=== PATIENT | female | born 1975 | race American Indian/Alaskan Native ===

== ENCOUNTER 2020-01-03 15:44 | Emergency (ER) | payer OTHER, SELFPAY ==
[2020-01-03 15:58] VITALS: BP 123/107; PULSE 111; RESP 20; TEMP 37.1; O2SAT 100
--- NOTE | 2020-01-03 16:00 | ED.URI ---
HPI - URI/Sore Throat General Chief Complaint: Upper Respiratory Infection Stated Complaint: Cough Time Seen by Provider: 01/03/20 16:15 Source: patient and RN notes reviewed Mode of arrival: ambulatory Limitations: no limitations History of Present Illness HPI Narrative: 44-year-old female presents with concern for cough, fever, shortness of breath with coughing, rhinorrhea, body aches. Reports her has similar symptoms. MD elicited complaint: cough Related Data Home Medications Medication Instructions Recorded Confirmed cyclobenzaprine 10 mg PO HS PRN 01/03/20 01/03/20 ibuprofen 800 mg PO TID PRN 01/03/20 01/03/20 Allergies Allergy/AdvReac Type Severity Reaction Status Date / Time Beer Allergy Unknown HIVES, Uncoded 06/17/19 10:29 SWELLING Review of Systems Review of Systems: Narrative: CONSTITUTIONAL: Reports malaise, chills, sweats, or fever. EYES: Denies visual changes, redness, or discharge. ENT: Reports rhinorrhea, congestion. Denies sinus pain, otalgia and sore throat. CARDIOVASCULAR: Denies chest pain, palpitations, or edema. RESPIRATORY: Reports cough, occasional dyspnea, wheezing GASTROINTESTINAL: Denies abdominal pain, nausea, vomiting, diarrhea SKIN: Denies rash or itching. MUSCULOSKELETAL: Reports myalgia. NEUROLOGIC: Denies headache. All systems reviewed & are unremarkable except as noted in HPI and below PMFSH Comments At time of signature, agree with nursing past medical, surgical, social and family history. There is no relevant family history pertinent to the presenting complaint Exam Narrative: Exam Narrative: GENERAL: Well-appearing, well-nourished, and in no acute distress. HEAD: Normocephalic EYES: PERRLA, conjunctivae clear ENT: Nares clear, turbinates edematous and erythematous, clear discharge. Mucous membranes moist. TM pearly zhou with dull light reflex bilaterally; no tragal tenderness. Oropharynx not erythematous without lesions. Tonsils not enlarged and without exudate, no drooling, no hoarseness, no trismus, uvula midline. NECK: Supple. No lymphadenopathy CHEST: Clear to auscultation, breath sounds equal. No rhonchi, rales, or stridor. No respiratory distress, speaks in full sentences. Rare scattered expiratory wheeze HEART: Regular rate and rhythm. No murmur heard. SKIN: Warm, dry, no rash. NEURO: Alert and oriented x3. PSYCH: Normal mood and affect Course Course Emergency Course: Patient is aware of diagnosis, understands and agrees to treatment plan. Anticipatory guidance given. Patient agrees to follow-up as directed and is aware of reasons to seek care at the emergency department. Portions of this record may have been created with voice recognition software Vital Signs Vital signs: Vital Signs Temperature 98.7 F 01/03/20 15:58 Pulse Rate 11 L 01/03/20 15:58 Respiratory Rate 20 01/03/20 15:58 Blood Pressure 123/107 H 01/03/20 15:58 Pulse Oximetry 100 01/03/20 15:58 Temperature 98.7 F 01/03/20 15:58 Pulse Rate 11 L 01/03/20 15:58 Respiratory Rate 20 01/03/20 15:58 Blood Pressure 123/107 H 01/03/20 15:58 Pulse Oximetry 100 01/03/20 15:58 Reviewed. MDM - URI/Sore Throat MDM Narrative Medical decision making narrative: Differential diagnosis considered: Strep pharyngitis, allergic rhinitis, upper respiratory tract infection, sinusitis, rhinosinusitis, nasopharyngitis. viral pharyngitis, otitis media, otitis externa, pneumonia, bronchitis, viral cough syndrome, viral syndrome, and influenza. Exam findings show no acute concerns or changes; patient is non-toxic appearing and is in no distress. Patient is appropriate for outpatient treatment and follow-up. Critical Care Time Critical Care Time Critical Care Time: No Discharge Plan Discharge Clinical Impression: Influenza-like illness Patient Disposition: Home, Self-Care Condition: Stable Instructions: Influenza (ED) Additional Instructions: -Your symptoms are cau
[2020-01-03 16:28] VITALS: BP 104/65; PULSE 84; RESP 16; TEMP 36.3; O2SAT 100
[2020-01-03 16:31] VITALS: BP 132/80; PULSE 100; RESP 18
== END 2020-01-03 16:40 | disposition home or self-care (01) ==
PROVIDERS: Emergency Provider Nurse Practitioner
DX: R05 Cough (principal); R50.9 Fever, unspecified; R06.02 Shortness of breath; J34.89 Other specified disorders of nose and nasal sinuses; E78.00 Pure hypercholesterolemia, unspecified; I10 Essential (primary) hypertension
CPT/HCPCS: 99213; G0463

== ENCOUNTER 2020-08-11 13:38 | Emergency (ER) | payer OTHER, SELFPAY ==
[2020-08-11 13:42] VITALS: BP 141/93; PULSE 83; RESP 16; TEMP 36.1; O2SAT 100
--- NOTE | 2020-08-11 13:45 | ED.DENTAL ---
HPI - Dental/Oral General Chief complaint: Dental/Oral Stated complaint: DENTAL ABSCESS Time Seen by Provider: 08/11/20 13:40 Source: patient Mode of arrival: ambulatory Limitations: no limitations History of Present Illness HPI Narrative: This is a 44-year-old female that presents the emergency department for toothache x3 days. Reports a tooth that is cracked and has become painful. She has not seen a dentist, and she is unsure if she has dental insurance. Denies fever. MD Complaint: tooth pain Location: Tooth # (14) Related Data Home Medications Medication Instructions Recorded Confirmed cyclobenzaprine 10 mg PO HS PRN 01/03/20 01/03/20 ibuprofen 800 mg PO TID PRN 01/03/20 01/03/20 Allergies Allergy/AdvReac Type Severity Reaction Status Date / Time Beer Allergy Unknown HIVES, Uncoded 06/17/19 10:29 SWELLING Review of Systems Review of Systems: Narrative: CONSTITUTIONAL: Denies fever ENT: Reports dentalgia All systems reviewed & are unremarkable except as noted in HPI and below PMFSH Past Medical History Medical History (Updated 08/11/20 @ 13:55 by Sophie Charles PA-C) History of depression History of hypertension Surgical History Surgical History (Updated 08/11/20 @ 13:45 by Sophie Charles PA-C) History of section Exam Narrative: Exam Narrative: GENERAL: Well-appearing, well-nourished, and in no acute distress. HEAD: Normocephalic, atraumatic. EYES: EOMI. ENT: Mucous membranes moist. Oropharynx without tonsillar hypertrophy exudate or other lesions. Poor dentition. Tooth number 14 tender to palpation and broken, no surrounding erythema or fluctuance to suggest abscess NECK: Supple. No adenopathy or masses. CHEST: Clear to auscultation. No respiratory distress. No wheezes rales or rhonchi HEART: Regular rate and rhythm. No murmur heard. Normal peripheral pulses. EXTREMITIES: Normal range of motion. No edema. SKIN: Warm, dry, no rash. NEURO: No focal deficits. Alert and oriented x3. PSYCH: Normal mood and affect Course Vital Signs Vital signs: Vital Signs Temperature 97 F L 08/11/20 13:42 Pulse Rate 83 08/11/20 13:42 Respiratory Rate 16 10/17/20 13:42 Blood Pressure 141/93 H 08/11/20 13:42 Pulse Oximetry 100 08/11/20 13:42 Temperature 97 F L 08/11/20 13:42 Pulse Rate 83 08/11/20 13:42 Respiratory Rate 16 08/11/20 13:42 Blood Pressure 141/93 H 08/11/20 13:42 Pulse Oximetry 100 08/11/20 13:42 MDM - Dental/Oral MDM Narrative Medical decision making narrative: Patient presents the emergency department for toothache x3 days. She is afebrile and nontoxic-appearing. Tooth is tender to palpation, no surrounding erythema or fluctuance to suggest abscess. Patient will be started on oral antibiotics. She is to follow-up with a dentist. She was given warnings to return to the ER Critical Care Time Critical Care Time Critical Care Time: No Discharge Plan Discharge Clinical Impression: Toothache Patient Disposition: Home, Self-Care Condition: Stable Instructions: Antibiotic Form, Toothache (ED) Additional Instructions: Return to the Emergency Department if you experience fever >101, increasing swelling and redness of your tooth, or any other symptoms that are concerning to you Take antibiotic as prescribed. Tylenol or Ibuprofen as needed for pain. You can apply a dab of clove oil to a Qtip and apply to the tooth to help numb the area Follow up with a dentist. Dr. Bryce Gillette at [facility] Prescriptions: New amoxicillin-pot clavulanate 875-125 mg tablet 1 tablet PO Q12H 7 Days Qty: 14 RF: 0 No Action cyclobenzaprine 10 mg Tablet 10 mg PO HS PRN (Reason: Back Pain) RF: 0 ibuprofen 800 mg Tablet 800 mg PO TID PRN (Reason: Back Pain) RF: 0 promethazine-DM 6.25-15 mg/5 mL syrup 5 ml PO Q4-6H PRN (Reason: cough) Qty: 120 RF: 0 methylprednisolone [Medrol (Toney)] 4 mg tablets,dose pack S
[2020-08-11] MEDS: KETOROLAC (*BKC) 60 MG/2 ML VIAL IM (13:59)
== END 2020-08-11 14:18 | disposition home or self-care (01) ==
PROVIDERS: Emergency Provider Emergency Medicine
DX: K08.89 Other specified disorders of teeth and supporting structures (principal); I10 Essential (primary) hypertension
CPT/HCPCS: 96372; 99283; J1885

== ENCOUNTER 2022-12-08 00:24 | Emergency (ER) | payer MEDICAID, SELFPAY ==
[2022-12-08] VITALS (15 sets, daily range): BP systolic 96–147; BP diastolic 50–93; PULSE 82–107; RESP 14–27; TEMP 38.1; O2SAT 95–100
--- NOTE | ~2022-12-08 | XR_ITS ---
Clinical Indication: Chest pain PA and lateral views of the chest: Comparison: None Findings: The lungs are clear, without evidence of focal consolidation or pleural effusion. Cardiome diastinal silhouette is within normal limits. Bones and soft tissues are unremarkable. Impression: Normal chest. Reviewed, dictated and finalized at location . 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
--- NOTE | 2022-12-08 00:28 | ECG_ITS ---
Measurements Intervals Stow Rate: 104 P: 47 NE: 160 QRS: 33 QRSD: 87 T: 38 QT: 319 QTc: 421 Interpretive Statements SINUS TACHYCARDIA NONSPECIFIC T-WAVE ABNORMALITY ABNORMAL RHYTHM ECG COMPARED TO ECG 06/09/2019 11:06:30 HEART RATE IS INCREASED NO OTHER SIGNIFICANT CHANGE Electronically Signed On 12-08-2022 12:07:01 [employer] by John Denton M.D.
--- NOTE | 2022-12-08 00:44 | ED.GENADULT ---
HPI - General Adult General Chief complaint: Chest Pain Stated complaint: chest pain, sob, and rash Time Seen by Provider: 12/08/22 00:34 History of Present Illness HPI narrative: Patient is a 47-year-old female who presents the emergency department with a chief complaint of generalized malaise. The patient reports that yesterday she started having a headache and that had a rash that appeared over her body the patient states that her daughter has been sick with gastrointestinal and upper respiratory symptoms the patient also reports has been coughing and reports that she has an uncomfortable feeling in her chest. The patient states that she has felt subjectively as though she has had a fever reports that she took ibuprofen a few hours ago. Related Data Home Medications Medication Instructions Recorded Confirmed cyclobenzaprine 10 mg tablet 10 mg PO HS PRN Back Pain 01/03/20 01/03/20 ibuprofen 800 mg tablet 800 mg PO TID PRN Back Pain 01/03/20 01/03/20 Allergies Allergy/AdvReac Type Severity Reaction Status Date / Time acetaminophen [From Vicodin] Allergy Nausea and Verified 12/08/22 00:25 Vomiting hydrocodone [From Vicodin] Allergy Nausea and Verified 12/08/22 00:25 Vomiting Beer Allergy Unknown HIVES, Uncoded 12/08/22 00:25 SWELLING Review of Systems Review of Systems: A 10 system review of systems was completed on the patient and is negative except for what is stated in the HPI. Nursing and ancillary documentation was reviewed. [facility] Past Medical History Medical History History of depression History of hypertension Surgical History Surgical History History of section Exam Narrative: GENERAL: Well-appearing, well-nourished, and in no acute distress. HEAD: Normocephalic, atraumatic. EYES: PERRLA and EOMI. ENT: Nares clear, no rhinorrhea or epistaxis. Mucous membranes moist. NECK: Supple. No nuchal rigidity CHEST: Clear to auscultation. No respiratory distress. HEART: Regular rate and rhythm. No murmur heard. Normal peripheral pulses. ABDOMEN: Soft, nontender, nondistended, normal active bowel sounds. EXTREMITIES: Normal range of motion. No edema. SKIN: Warm, dry, maculopapular rash over the body. NEURO: No focal deficits. Alert and oriented x3. PSYCH: Normal mood and affect. Course Course Emergency Course: EKG is sinus rhythm rate of [address] elevation or ST depression Patient was febrile when she first arrived and was responded with Tylenol. Laboratory studies showed a normal white blood cell count normal procalcitonin normal lactate. Patient's electrolytes showed minimal elevation in the liver transaminases but normal bilirubin patient had a negative troponin x2 and urinalysis showed evidence of 16-20 white blood cells in the urine 4+ bacteria. Chest x-ray was interpreted by me showed no evidence of focal infiltrate. Patient will be given a dose of Omnicef in the emergency department and discharged home on Omnicef. Vital Signs Vital signs: Vital Signs Pulse Rate 103 H 12/08/22 00:30 Temperature 38.1 C H 12/08/22 00:32 Pulse Rate 82 12/08/22 03:46 Respiratory Rate 22 H 12/08/22 03:46 Blood Pressure 113/70 12/08/22 03:46 Pulse Oximetry 96 12/08/22 03:46 Oxygen Delivery Room Air 12/08/22 00:31 Medical Decision Making Vital Signs Vital Signs: Vital Signs Pulse Rate 103 H 12/08/22 00:30 Temperature 38.1 C H 12/08/22 00:32 Pulse Rate 82 12/08/22 03:46 Respiratory Rate 22 H 12/08/22 03:46 Blood Pressure 113/70 12/08/22 03:46 Pulse Oximetry 96 12/08/22 03:46 Oxygen Delivery Room Air 12/08/22 00:31 Lab Data 12/08/22 00:46 12/08/22 00:46 Labs: Lab Results 12/08/22 12/08/22 12/08/22 Range/Units 00:46 00:46 00:46 WBC 4.8 (4.5-10.0) K/mm3 RBC
[2022-12-08 01:08] LABS: Basophils Percent Auto 0.6 % (0.2-1.2); Eosinophils Absolute Auto 0.2 K/mm3 (0-0.3); Eosinophils Percent Auto 4.4 % (0-4.4); Hematocrit 44.6 % (37.0-47.0); Hemoglobin 14.7 g/dL (12.0-15.0); Immature Granulocyte Absolute 0.04 K/mm3 (0.00-0.031); Immature Granulocyte Percent A 0.8 % (0-0.5); Lymphocytes Absolute Auto 0.67 K/mm3 (0.9-3.2); Lymphocytes Percent Auto 13.9 % (18.3-44.2); Mean Corpuscular Hemoglobin 29.7 pg (26-34); Mean Corpuscular Volume 90.1 fl (80-100); Mean Platelet Volume 11.2 fl (7.4-10.4); Monocytes Absolute Auto 0.3 K/mm3 (0.1-0.6); Monocytes Percent Auto 6.4 % (2.6-8.5); Neutrophils Absolute Auto 3.6 K/mm3 (1.3-6.7); Neutrophils Percent Auto 73.9 % (45.5-73.1); Platelet Count Result 158 k/mm3 (150-375); Red Blood Count 4.95 M/mm3 (4.2-5.4); Red Cell Distribution Width 13.7 % (11.5-14.5); White Blood Count 4.8 K/mm3 (4.5-10.0)
[2022-12-08 01:12] LABS: Appearance Urine Clear (Clear); Bilirubin Urine Negative (Negative); Blood Urine Negative (Negative); Color Urine Yellow (Yellow); Glucose Urine UA 1+ mg/dL (Negative); Ketones Urine Negative (Negative); Leukocyte Esterase Ur Trace LEU/UL (Negative); Nitrate Urine Negative (Negative); Protein Urine Negative (Negative); Specific Grav Ur 1.015 (1.001-1.035)
[2022-12-08 01:15] LABS: Bacteria Urine 4+ /hpf; Mucus Urine Rare /lpf; RBC Urine 0-2 /hpf (0-2); Squamous Epithelial Cell Urine Occasional /hpf (Few); WBC Urine 16-20 /hpf
[2022-12-08 01:16] LABS: Add Urine Microscopic? YES
[2022-12-08] MEDS: ONDANSETRON INJ 4 MG/2 ML VIAL IV PUSH (01:17)
[2022-12-08 01:18] LABS: Prothrombin Time 12.3 Seconds (11.1-14.7)
[2022-12-08] MEDS: SODIUM CHLORIDE 0.9% IV 1,000 ML 999 ML IV CONT (01:18)
[2022-12-08 01:19] LABS: Partial Thromboplastin Time 28.5 SECONDS (22.3-36.8)
[2022-12-08 01:33] LABS: Lactic Acid Reflex 1.7 mmol/L (0.7-2.0)
[2022-12-08 01:39] LABS: Alanine Aminotransferase 51 U/L (6-35); Albumin Level 4.1 g/dL (3.5-5.1); Alkaline Phosphatase 78 U/L (38-126); Anion Gap 6 mmol/L (8-16); Aspartate Amino Transferase 44 U/L (14-36); Bilirubin,Total 0.8 mg/dL (0.2-1.3); Blood Urea Nitrogen 10 mg/dL (7-17); Calcium 8.1 mg/dL (8.4-10.2); Carbon Dioxide 24 mmol/L (22-30); Chloride 103 mmol/L (98-107); Estimated CRCL calculation 91 ml/min; Estimated Glomerular Filt Rate > 60; Glucose 137 mg/dL (65-110); Lipase 64 U/L (23-300); Sodium 133 mmol/L (137-145)
[2022-12-08 01:43] LABS: Strep Group A RT-PCR NOT DETECTED (Negative)
[2022-12-08 01:45] LABS: Troponin I < 0.012 ng/mL (0.000-0.034)
[2022-12-08 01:56] LABS: Influenza A QL RT-PCR Negative (Negative); Influenza B QL RT-PCR Negative (Negative); Procalcitonin 0.3 ng/mL; SARS-CoV-2 RNA PCR Negative
[2022-12-08 02:37] LABS: Monoscreen Negative (Negative); Negative Monotest Control Negative (Negative); Positive Monotest Control Positive (Positive)
[2022-12-08 03:49] LABS: Troponin I < 0.012 ng/mL (0.000-0.034)
[2022-12-08] MEDS: CEFDINIR 300 MG CAPSULE PO (04:08)
== END 2022-12-08 04:15 | disposition home or self-care (01) ==
PROVIDERS: Emergency Provider Emergency Medicine
DX: N39.0 Urinary tract infection, site not specified (principal); Z20.822 Contact with and (suspected) exposure to COVID-19; I10 Essential (primary) hypertension
CPT/HCPCS: 36415; 71046; 80053; 81001; 83605; 83690; 84145; 84484; 85025; 85610; 85730; 86308; 87077; 87086; 87186; 87636; 87651; 93005; 96361; 96365; 96375; 99284; A9270; J0131; J2405; J7030

== ENCOUNTER 2024-08-29 11:52 | Emergency (ER) | payer MEDICAID, SELFPAY ==
--- NOTE | ~2024-08-29 | XR_ITS ---
EXAMINATION: XR chest 2V DATE: 08/29/2024 12:49 INDICATION: Cough. TECHNIQUE: Frontal and lateral views of the chest were obtained. COMPARISON: Chest 2 views 12/08/2022 FINDINGS: There is no pneumonia, pleural effusion, or pneumothorax. The heart size is normal. There i s mild chronic anterior wedging of T12 and L1 vertebral bodies. IMPRESSION: 1. No acute cardiopulmonary disease. Reviewed, dictated and finalized at location A. 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
--- NOTE | 2024-08-29 12:01 | ED.URI ---
HPI - URI/Sore Throat General Chief Complaint: Upper Respiratory Infection Stated Complaint: cough/sob Time Seen by Provider: 08/29/24 12:38 Source: patient and RN notes reviewed Mode of arrival: ambulatory Limitations: no limitations History of Present Illness HPI Narrative: 48 year old female presents with concern for 2 week history of cough, chest congestion, headache, shortness of breath, lightheadedness. She reports she is having some shortness of breath and wheezing. She denies fever, aches, chills, sweats. She reports she has sore throat beginning with does not have a sore throat now MD elicited complaint: cough Related Data Home Medications Medication Instructions Recorded Confirmed albuterol sulfate 90 mcg/actuation See Rx Instructions .Route 08/29/24 08/29/24 aerosol inhaler .COMPLEX PRN sob atorvastatin 40 mg tablet 40 mg PO DAILY 08/29/24 08/29/24 buspirone 10 mg tablet 20 mg PO BID 08/29/24 08/29/24 citalopram 40 mg tablet 40 mg PO DAILY 08/29/24 08/29/24 cyclobenzaprine 10 mg tablet See Rx Instructions .Route 08/29/24 08/29/24 .COMPLEX PRN pain furosemide 40 mg tablet 40 mg PO DAILY 08/29/24 08/29/24 ibuprofen 400 mg tablet See Rx Instructions .Route 08/29/24 08/29/24 .COMPLEX PRN Pain lamotrigine 150 mg tablet 150 mg PO DAILY 08/29/24 08/29/24 lisinopril 10 mg tablet 10 mg PO DAILY 08/29/24 08/29/24 metformin 500 mg tablet 500 mg PO BID 08/29/24 08/29/24 metoprolol succinate 50 mg 50 mg PO DAILY 08/29/24 08/29/24 tablet,extended release 24 hr Allergies Allergy/AdvReac Type Severity Reaction Status Date / Time acetaminophen [From Vicodin] Allergy Nausea and Verified 08/29/24 12:15 Vomiting hydrocodone [From Vicodin] Allergy Nausea and Verified 08/29/24 12:15 Vomiting Beer Allergy Unknown HIVES, Uncoded 08/29/24 12:15 SWELLING Review of Systems Review of Systems: CONSTITUTIONAL: Reports malaise,. Denies fever. EYES: Denies visual changes, redness, or discharge. ENT: Denies rhinorrhea, congestion, sinus pain, otalgia and sore throat. CARDIOVASCULAR: Denies chest pain, palpitations, or edema. RESPIRATORY: Reports cough, chest congestion, occasional wheezing and dyspnea. GASTROINTESTINAL: Denies abdominal pain, nausea, vomiting, diarrhea SKIN: Denies rash or itching. MUSCULOSKELETAL: Denies myalgia. NEUROLOGIC: Reports headache and occasional lightheadedness. All systems reviewed & are unremarkable except as noted in HPI and below PMFSH Past Medical History Medical History History of depression History of hypertension Surgical History Surgical History History of section Comments At time of signature, agree with nursing past medical, surgical, social and family history. There is no relevant family history pertinent to the presenting complaint Exam Narrative: GENERAL: Nontoxic-appearing, well-nourished, and in no acute distress. HEAD: Normocephalic EYES: PERRLA, conjunctivae clear ENT: Nares clear. Mucous membranes moist. TM pearly zhou with sharp light reflex bilaterally; no tragal tenderness. Oropharynx not erythematous without lesions. Tonsils not enlarged and without exudate, no drooling, no hoarseness, no trismus, uvula midline. NECK: Supple. No lymphadenopathy CHEST: Clear to auscultation, breath sounds equal. No wheezing, rhonchi, rales, or stridor. No respiratory distress, speaks in full sentences. HEART: Regular rate and rhythm. No murmur heard. SKIN: Warm, dry, no rash. NEURO: Alert and oriented x3. PSYCH: Normal mood and affect Course Course Emergency Course: Patient is aware of diagnosis, understands and agrees to treatment plan. Anticipatory guidance given. Patient agrees to follow-up as directed and is aware of reasons to seek care at the emergency department. Portions of this record may have been created with voice recognition software Level of Care: Express Care Visit Vital Signs Vital signs: Reviewed. MDM - URI/Sore Throat MDM Narrative Medical decision making narrative: Differential diagnosis considered: Clement virus, strep pharyngitis, allergic rhinitis, upper respiratory tract infection, sinusitis, rhinosinusitis, nasopharyngitis. viral pharyngitis, otitis media, otitis externa, pneumonia, bronchitis, viral cough syndrome, viral syndrome, and influenza. Exam findings show no acute concerns or changes; patient is non-toxic appearing and is in no distress. Patient is appropriate for outpatient treatment and follow-up. Lab Data Attestation: I reviewed the patient's lab results. Imaging Data My impression: Images reviewed, interpreted by radiologist, agree, see report. Radiologist's impression: EXAMINATION: XR chest 2V DATE: 08/29/2024 12:49 INDICATION: Cough. TECHNIQUE: Frontal and lateral views of the chest were obtained. COMPARISON: Chest 2 views 12/08/2022 FINDINGS: There is no pneumonia, pleural effusion, or pneumothorax. The heart size is normal. There is mild chronic anterior wedging of T12 and L1 vertebral bodies. IMPRESSION: 1. No acute cardiopulmonary disease. Critical Care Time Critical Care Time Critical Care Time: No Discharge Plan Discharge Clinical Impression: Bronchitis Patient Disposition: Home, Self-Care Condition: Stable Instructions: Acute Bronchitis (ED) Additional Instructions: Your x-ray is normal, it does not show pneumonia Take medications as prescribed Recommend antihistamine such as Benadryl at night time and Zyrtec or Moriah during the day Cough syrup may cause drowsiness; avoid driving or take it at night time. Also, recommend symptomatic treatment includes: rest, fluids, and increase humidity of the air at home. Recommend Acetaminophen as directed on the bottle to reduce fever, pain, headache. Avoid smoking/second-hand smoke. Please schedule a follow-up visit with your personal physician for further evaluation and treatment within 3-5days. If your symptoms persist, change or worsen significantly before you can contact your personal physician then please, without delay, go to the emergency department for further evaluation. Prescriptions: New promethazine-DM 6.25-15 mg/5 mL syrup 5 ml PO Q4-6H PRN (Reason: cough) Qty: 120 0RF methylprednisolone [Medrol (Toney)] 4 mg tablets,dose pack See Rx Instructions .ROUTE .COMPLEX Qty: 21 0RF Rx Instructions: orally per package directions No Action citalopram 40 mg tablet 40 mg PO DAILY atorvastatin 40 mg tablet 40 mg PO DAILY metoprolol succinate 50 mg tablet extended release 24 hr 50 mg PO DAILY albuterol sulfate 90 mcg/actuation HFA aerosol inhaler See Rx Instructions .ROUTE .COMPLEX PRN (Reason: sob) Rx Instructions: as prescribed lamotrigine 150 mg tablet 150 mg PO DAILY metformin 500 mg tablet 500 mg PO BID cyclobenzaprine 10 mg tablet See Rx Instructions .ROUTE .COMPLEX PRN (Reason: pain) Rx Instructions: as prescribed furosemide 40 mg tablet 40 mg PO DAILY lisinopril 10 mg tablet 10 mg PO DAILY ibuprofen 400 mg tablet See Rx Instructions .ROUTE .COMPLEX PRN (Reason: Pain) Rx Instructions: as prescribed buspirone 10 mg tablet 20 mg PO BID Follow-up/Referrals: Nuha,SEN Flores [Primary Care Provider] - Stand Alone Forms: Work/School Release IP Time of Disposition: 12:57
[2024-08-29 12:10] VITALS: BP 135/89; PULSE 86; RESP 20; TEMP 36.6; O2SAT 98
[2024-08-29 12:24] VITALS: BP 135/89; PULSE 86; RESP 20; TEMP 36.6; O2SAT 98
== END 2024-08-29 13:00 | disposition home or self-care (01) ==
PROVIDERS: Emergency Provider Nurse Practitioner; PCP Nurse Practitioner Family
DX: J40 Bronchitis, not specified as acute or chronic (principal); I10 Essential (primary) hypertension; F32.A Depression, unspecified
CPT/HCPCS: 71046; 99213; G0463

== ENCOUNTER 2025-02-17 13:29 | Emergency (ER) | payer MEDICAID, SELFPAY ==
--- NOTE | ~2025-02-17 | XR_ITS ---
EXAMINATION: XR chest 2V 02/17/2025 14:20 INDICATION: Chest pain and tightness PROCEDURE: 2 view chest COMPARISON: 08/29/2024 FINDINGS: The lungs are clear. The cardiomediastinal silhouette is within normal limits. There are no pleural effusions. There is no pneumothorax suspected. IMPRESSION: 1: NO ACUTE CARDIOPULMONARY DISEASE. Reviewed, dictated and finalized at location A.
[2025-02-17 13:37] VITALS: BP 151/99; PULSE 94; RESP 16; TEMP 36.2; O2SAT 98
--- NOTE | 2025-02-17 13:37 | ECG_ITS ---
Test Date: 2025-02-17 13:52:34 Measurements Intervals [place] Rate: 88 P: 51 GA: 116 QRS: 31 QRSD: 90 T: 28 QT: 367 QTc: 446 Interpretive Statements SINUS RHYTHM WITH SHORT GA INTERVAL ST-T WAVE ABNORMALITY IN ANTEROLATERAL LEADS- CONSIDER ISCHEMIA BASELINE ARTIFACT- I, II, III, AVR, AVL, AVF, V1-V6 ABNORMAL ECG No previous ECG available for comparison Electronically Signed On 02-17-2025 14:24:31 CDT by Keith Alfredo D.O.
--- OUTSIDE RECORDS SUMMARY | 2025-02-17 13:37 | XMS_ITS | Referral Summary ---
Author Organization [facility] Address [address] [place] [address] Phone Care Team Providers Care Offshore Wind Operations Manager Name Role Phone Sandra Breen NP Primary Care Provider + [phone] Noelle Gastelum MD Unavailable + [phone] Kaiser Sam NP Unavailable [phone] Paola Kim PT Unavailable Unavaila Venus Tobias Unavailable [phone] Encounters Date Type Department Care Team Description 01/04/[address] [facility] Gastroenterology at [address] [place] [address] Olivia Farias 12/13/2024 2:30 PM ROBOTIC MACHINE OPERATOR Telemedicine [facility] [id number] [place] [address] [address], [place] [address] Felisha Erickson MD Type 2 diabetes mellitus with hyperglycemia, without long-term current use of insulin (HCC) (Primary Dx) from Last 3 Months Allergies Active Allergy Reactions Criticality Noted Date Comments Hydrocodone Nausea & Vomiting Low 06/10/2023 Medications atorvastatin (LIPITOR) 40 mg tablet Take 1 tablet (40 mg total) by mouth every evening 02/03/2021 Active lisinopriL (PRINIVIL,ZESTR IL) 10 mg tablet Take 1 tablet (10 mg total) by mouth daily 08/26/2021 Active citalopram (CeleXA) 20 mg tablet Take 1 tablet (20 mg total) by mouth daily 15 tablet 11/17/2021 Active busPIRone (BUSPAR) 15 mg tablet Take 1 tablet (15 mg total) by mouth 2 (two) times a day 05/25/2023 Active lamoTRIgine (LaMICtal) 150 mg tablet Take 1 tablet (150 mg total) by mouth daily 05/28/2023 Active metFORMIN (GLUCOPHAGE) 500 mg tablet Take 1 tablet (500 mg total) by mouth 2 (two) times a day with meals Active metoprolol XL (TOPROL-XL) 50 mg extended release tablet TAKE 1 TABLET(50 MG) BY MOUTH DAILY 90 tablet 3 01/01/2024 Active ibuprofen (ADVIL,MOTRIN) 400 mg tablet Take 1 tablet (400 mg total) by mouth every 6 (six) hours as needed for pain 20 tablet 05/29/2024 Active cyclobenzaprine (FLEXERIL) 10 mg tablet Take 1 tablet (10 mg total) by mouth 3 (three) times a day as needed (Muscle strain) 12 tablet 05/29/2024 Active semaglutide (OZEMPIC) 0.25 mg or 0.5 mg (2 mg/3 mL) pen injector injection Take 0.25 mg weekly x 4 weeks, then continue with 0.5 mg weekly 3 mL 2 12/13/2024 Active flash glucose sensor (FreeStyle Arun 2 Sensor) kitIndications: Type 2 diabetes mellitus with hyperglycemia, without long-term current use of insulin (HCC) CHANGE EVERY 14 DAYS 6 kit 3 01/04/2025 Active Active Problems Problem Noted Date Diagnosed Date Encounter for screening for malignant neoplasm o f colon 01/04/2025 Type 2 diabetes mellitus wit h hyperglycemia, without long-term current use of insulin 06/08/2024 Assessment & Plan (06/08/2024 4:55 PM CDT): Hba1c was Lab Results Component Value Date HGBA1C 6.6 06/08/2024 today, indicating adequate DM control Goal Hba1c under 7 and blood glucose level in the 120-160 range was explained Low carb diet and daily aerobic and /or resistant exercise were advised Blood glucose monitoring : The patient is interested in CGM. She was provided with [email or web address] Arun 2 samples, and she downloaded application to his phone. She was hooked to the office Adjustment to medications: Instead of metformin 500 mg twice a day Might consider a GLP 1 with Ozempic Were would like information from her retinologist 1st Rotator cuff strain, left, initial encounter 09/2024 History of total knee arthroplasty, left 023 Primary osteoarthritis of left knee 06/24/2023 SVT (supraventricular tachycardia) 06/23/2023 Pre-op testing 06/23/2023 Borderline personality disorder 06/15/2023 Chronic pain 06/15/2023 Disorder of skin 06/15/2023 Hyperlipidemia 06/15/2023 Plantar fasciitis 06/15/2023 Shoulder pain 06/15/2023 Spasm of back muscles 06/15/2023 Unstable knee 06/15/2023 Urinary incontinence 05/26/2022 Anxiety 01/30/2022 Supraventricular tachycardia 09/09/2021 Primary osteoarthritis of right knee 02/15/2021 Obesity 02/21/2019 Bipolar disorder 02/21/2019 Pain in right knee 02/21/2019 Essential (primary) hypertension 02/23/2018 Obstructive sleep apnea syndrome 02/23/2018 Immunizations Immunization Administration Dates Next Due Influenza, Quadrivalent, Split, Intramuscular Influenza, Quadrivalent, Spl it, Preservative Free, Intramuscular 10/01/2017,11/27/2015 MMR 03/22/2016 Tdap 03/21/2016 Social History Tobacco Use Types Packs/Day Years Used Date Smoking Tobacco: Never Smokeless Tobacco: Never Alcohol Use Standard Drinks/Week Comments No 0 (1 standard drink = 0.6 oz pur e alcohol) AUDIT-C Answer Date Recorded Q1: How often do you have a drink containing alcohol? Never 06/08/2024 Q2: How many drinks containi ng alcohol do you have on a typical day when you are drinking? Patient does not drink Q3: How often do you have si x or more drinks on one occasion? Never 06/08/2024 PHQ-2 Answer Date Recorded PHQ-2 Total Score (If total score is 3 or more points, staff should administer the PHQ-9) 0 06/08/2024 Personal Safety Answer Date Recorded Have you ever been in or are you currently in a harmful physical or emotional relationship or is someone making you feel afraid or unsafe? Denies 05/29/2024 Comments No Sex and Gender Information Value Date Recorded Sex Assigned at Not on file Legal Sex Female 9:22 AM ROBOTIC MACHINE OPERATOR Gender Identity Female 02/01/2021 1:22 AM CDT Sexual Orientation Straight 02/01/2021 1: 22 AM CDT Last Filed Vital Signs Vital Sign Reading Time Taken Comments Blood Pressure 132/80 06/08/2024 3:58 PM CDT Pulse 68 06/08/2024 3:58 PM CDT Temperature 36.6 C (97.8 F) 05/29/2024 7:58 PM CDT Respiratory Rate 18 06/08/2024 3:58 PM CDT Oxygen Saturation 99% 05/29/2024 7:58 PM CDT Inhaled Oxygen Concentration - - Weight 86.2 kg (190 lb) 12/13/2024 2:23 PM ROBOTIC MACHINE OPERATOR Height 154.9 cm (5' 1 ) 12/13/2024 2:23 PM ROBOTIC MACHINE OPERATOR Body Mass Index 35.9 12/13/2024 2:23 PM ROBOTIC MACHINE OPERATOR Plan of Treatment Upcoming Encounters Date Type Department Care Team (Late st Contact Info) Description 08/10/2025 9:30 AM CDT Hospital Encounter [address] [address]Alfreda Fleming MD [address] [place] [address] [place] [address] 08/10/2025 9:30 AM CDT - 08/10/2025 10:00 AM CDT Surgery [address] [address]Alfreda Fleming MD [address] [place] [address] [address] [address] COLONOSCOPY Scheduled Procedures Name Priority Associated Diagnoses Date/Ti me COLONOSCOPY Encounter for screening for malignant neoplasm of colon 08/10/2025 9:30 AM CDT Medical Devices Implanted Type Area Quality Control Device Identifier Shelf Expiration Date Model / Serial / Lot DepIPICO Orthopaedics Inc [id number] Attune 6mm Cruciate Retaining Rotate Platform Knee 4 Insert - [id number] Implanted:Qty: 1 on 01/21/2022 by Song Harrison MD at [facility] Right: Knee Depuy [employer] Inc 05/25/2026 [id number] / / [id number] Depuy [employer] [id number] Attune Cementless Rotate Platform Knee 3 Baseplate Tibial - [id number] Implanted:Qty: 1 on 01/21/2022 by Song Harrison MD at [facility] Right: Knee Depuy [employer] 07/25/2029 [id number] / / [id number] Depuy [employer] [id number] Attune Cruciate Retain Cementless Knee Right 4 Narrow Component - [id number] Implanted:Qty: 1 on 01/21/2022 by Song Harrison MD at [facility] Right: Knee Depuy [employer] 10/25/2030 [id number] / / [id number] Depuy [employer] Attune Fb Tib Base Sz 3 Por [id number] - [id number] Implanted:Qty: 1 on 07/28/2023 by Song Harrison MD at [facility] Left: Knee Depuy [employer] [id number] 11/25/2032 [id number] / / [id number] Depuy [employer] Attune Cruciate Retain Cementless Knee Left 4 Narrow Component [id number] - [id number] Implanted:Qty: 1 on 07/28/2023 by Song Harrison MD at [facility] Left: Knee Depuy [employer] Inc [id number] 01/24/2032 [id number] / / [id number] Depuy Orthopa[employer] Insert Attune Left Medial Stabilized Size 4 6mm [id number] - [id number] Implanted:Qty: 1 on 07/28/2023 by Song Harrison MD at [facility] Left: Knee Depuy [employer] [id number] 03/25/2031 [id number] / / [id number] Procedures Procedure Name Priority Date/Time Associated Diagnosis Comments POCT GLUCOSE Routine 12/13/2024 2:25 PM ROBOTIC MACHINE OPERATOR Type 2 diabetes mellitus with hyperglycemia, without long-term current use of insulin (HCC) POCT HEMOGLOBIN A1C Routine 06/08/2024 3 :57 PM CDT Type 2 diabetes mellitus with hyperglycemia, without long-term current use of insulin (HCC) EGFR Routine 03/15/2024 3:49 PM CDT from Last 3 Months or Most Recently Relevant to Health Maintenance Results * POCT glucose (12/13/2024 2:25 PM ROBOTIC MACHINE OPERATOR) Glucose Blood, POC 132 mg/dL Comment:None Blood 12/13/2024 2:25 PM ROBOTIC MACHINE OPERATOR us Felisha Erickson MD POINT OF CARE TEST ORDERABLES Fi nal Result * (ABNORMAL) POCT hemoglobin A1c (06/08/2024 3:57 PM CDT) Hemoglobin A1C, POC 6.6 4.0 - 5.6 % Comment:None Capillary blood 06/08/2024 3 :57 PM CDT us Felisha Erickson MD POINT OF CARE TEST ORDERABLES Fi nal Result * eGFR (03/15/2024 3:49 PM CDT) eGFR 86 >=60 mL/min/1. 73 m2 Comment: Interpretive Data Reference Interval Normal >/= 90 mL/min/1.73m2 Mildly decreased* 60 - 89 mL/min/1.73m2 Mildly to moderately decreased 45 - 59 mL/min/1.73m2 Moderately to severely decreased 30 - 44 mL/min/1.73m2 Severely decreased 15 - 29 mL/min/1.73m2 Kidney Failure < 15 mL/min/1.73m2 *Relative to young adult level Estimated glomerular filtration rate is determined by the 2020 CKD-EPI equation recommended by the National Kidney Foundation (A Unifying Approach to GFR Estimation: Recommendations of the NKF-ASK Task Force on Reassessing the Inclusion of Race in Diagnosing Kidney Disease, JASN 2020). The CKD-EPI equation should not be used for patients with unstable renal function and has not been validated in children and those over 70. Current interpretive data was last reviewed 2021. Blood 03/15/2024 3:49 PM CDT 03/15/2024 7:08 PM CDT us Norm Morley MD LAB BLOOD ORDERABLES Final Resu lt JEFFY [id number] [address] Department [place] [address] from Last 3 Months or Most Recently Relevant to Health Maintenance [place] [address] Care Teams Offshore Wind Operations Manager Relationship Specialty Start Date End Date Sandra Breen NP [address] [address] PCP - General Family Medicine 02/04/21 Noelle Gastelum MD [address] [place] [address] Candle Pourer Cardiology 10/04/21 Kaiser Sam NP [address] [place] [address] [place] [address] Nurse Practitioner Nurse Practitioner 01/21/22 Paola Kim, PT Physical Therapist Physical Therapy 02/13/22 Venus Jurado PA [address] [place] [address] [place] [address] Physician Lathe Hand Orthopedic Surgery 07/28/23
--- OUTSIDE RECORDS SUMMARY | 2025-02-17 13:37 | XMS_ITS | Clinical Summary ---
Author Organization [facility] Address [address] [address] Phone Care Team Providers Care Director Of Patient Safety Name Role Phone Sandra Breen NP Primary Care Provider + [phone] Noelle Gastelum MD Unavailable + [phone] Kaiser Sam SALES AGENT [employer] Unavailable [phone] Paola Kim PT Unavailable Unavaila Venus Tobias Unavailable [phone] Allergies Active Allergy Reactions Criticality Noted Date [...] interested in CGM. She was provided with freestyle Arun 2 samples, and she downloaded application [...] hypertension 02/23/2018 Obstructive sleep apnea syndrome 02/23/2018 Encounters Date Type Department Care Team Description 01/04/2025 Telephone [facility] Gastroenterology at [address], [place] [address] JarrettBenjaminOlivia 12/13/2024 2:30 PM BOX PULLER Telemedicine [facility] [address] [place] [address] Felisha Erickson MD Type 2 diabetes mellitus with hyperglycemia, without long-term current use of insulin (HCC) (Primary Dx) from Last 3 Months Immunizations Immunization Administration Dates Next Due Influenza, Quadrivalent, Split, Intramuscular Influenza, Quadrivalent, Spl it, Preservative Free, Intramuscular 10/01/2017,11/27/2015 MMR 03/22/2016 Tdap 03/21/2016 Surgical History Surgery Date Site/Laterality Comments KNEE ARTHROSCOPY Right URETHRA SURGERY HYSTERECTOMY 10/26/2017 - 10/25/2018 partial TOTAL KNEE ARTHROPLASTY Right DENTAL SURGERY all teeth removed for dentures Medical History Medical History Date Comments PTSD (post-traumatic stress disorder) Anxiety Bipolar 1 disorder (HCC) OCD (obsessive compulsive disorder) Hypertension Hypercholesteremia Depression Osteoarthritis SVT (supraventricular tachycardia) Sleep apnea Motion sickness Chronic bronchitis (HCC) H/O borderline personality disorder manic borderline personality disorder Type 2 diabetes mellitus (HCC) Arrhythmia Family History Medical History Relation Name Comments Heart disease Other Hypertension Other Kidney disease Other Stroke Other Relation Name Status Comments Other Social History Tobacco Use Types Packs/Day Years [...] on file Legal Sex Female 9:22 AM BOX PULLER Gender Identity Female 02/01/2021 1:22 AM CDT Sexual Orientation Straight 02/01/2021 1: 22 AM CDT Obstetrics History Para Term AB IAB SAB Ectopic Multiple Livin g Live Births 3 1 1 Date Outcome GA Total Labor Labor/2nd/3rd Weight Sex Type Anes PTL Yolande A1 A5 Name Clin Term Last Filed Vital Signs Vital Sign Reading Time Taken Comments Blood Pressure 132/80 06/08/2024 3:58 PM CDT Pulse 68 06/08/2024 3:58 PM CDT Temperature 36.6 C (97.8 F) 05/29/2024 7:58 PM CDT Respiratory Rate 18 06/08/2024 3:58 PM CDT Oxygen Saturation 99% 05/29/2024 7:58 PM CDT Inhaled Oxygen Concentration - - Weight 86.2 kg (190 lb) 12/13/2024 2:23 PM BOX PULLER Height 154.9 cm (5' 1 ) 12/13/2024 2:23 PM BOX PULLER Body Mass Index 35.9 12/13/2024 2:23 PM BOX PULLER Plan of Treatment Upcoming Encounters Date Type Department Care Team (Late st Contact Info) Description 08/10/2025 9:30 AM CDT Hospital Encounter [facility] [address] [place] [address] Alfreda Doe MD [address] [place] [address] 08/10/2025 9:30 AM CDT - 08/10/2025 10:00 AM CDT Surgery [facility] [address] [place] [address] Alfreda Doe MD [address] [place] [address] [address] [place] [address] COLONOSCOPY Scheduled Procedures Name Priority Associated Diagnoses Date/Ti me COLONOSCOPY Encounter for screening for malignant neoplasm of colon 08/10/2025 9:30 AM CDT Health Maintenance Due Date Last Done Comments Albumin Creatinine Ratio, Urine 1974 Colon Cancer Screening-Colonoscopy 1974 Hepatitis C Screening 1974 Dilated Eye Exam 1974 Foot Exam 1974 Lipid Panel 1974 Hepatitis B Screening 1992 Regular Well Visit/Exam 18-64 1992 Pneumococcal vaccine <65 (1 of 2 - PCV) 1993 Breast Cancer Screening-Mammogram 04/25/2016 015 Zoster Vaccine (1 of 2) 2024 Hemoglobin A1C 12/09/2024 06/08/2024, 07/02/2023 eGFR 03/15/2025 03/15/2024, 06/27, 06/15/2023, Additional history exists Depression Screening 06/08/2025 06/08/2024 DTaP/Tdap/Td Vaccine (2 - Td or Tdap) 03/21/2026 03/21/2016 Influenza Vaccine Completed 07/12/2024, , 12/26/2021, Additional history exists Medical Devices Implanted Type Area Farm Machinery Erector Device Identifier Shelf Expiration Date Model / Serial / Lot Depuy Orthopaedics Inc [id number] Attune 6mm Cruciate Retaining Rotate Platform Knee 4 Insert - [id number] Implanted:Qty: 1 on 01/21/2022 by Song Harrison MD at [facility] Right: Knee Depuy [employer] Inc 05/25/2026 [id number] / / [id number] Depuy [employer] Inc [id number] Attune Cementless Rotate Platform Knee 3 Baseplate Tibial - [id number] Implanted:Qty: 1 on 01/21/2022 by Song Harrison MD at [facility] Right: Knee Depuy [employer] Inc 07/25/2029 [id number] / / [id number] Depuy [employer]opa[employer] Inc [id number] Attune Cruciate Retain Cementless Knee Right 4 Narrow Component - [id number] Implanted:Qty: 1 on 01/21/2022 by Song Harrison MD at [facility] Right: Knee Depuy [employer] Inc 10/25/2030 [id number] / / [id number] Depuy [employer] Inc Attune Fb Tib Base Sz 3 Por [id number] - [id number] Implanted:Qty: 1 on 07/28/2023 by Song Harrison MD at [facility] Left: Knee Depuy [employer] Inc [id number] 11/25/2032 [id number] / / [id number] Depuy [employer]opa[employer] Inc Attune Cruciate Retain Cementless Knee Left 4 Narrow Component [id number] - [id number] Implanted:Qty: 1 on 07/28/2023 by Song Harrison MD at [facility] Left: Knee Depuy [employer] Inc [id number] 01/24/2032 [id number] / / [id number] Depuy [employer]opa[employer] Inc Insert Attune Left Medial Stabilized Size 4 6mm [id number] - [id number] Implanted:Qty: 1 on 07/28/2023 by Song Harrison MD at [facility] Left: Knee Depuy [employer] Inc [id number] 03/25/2031 [id number] / / [id number] Procedures Procedure Name Priority Date/Time Associated Diagnosis Comments POCT GLUCOSE Routine 12/13/2024 2:25 PM BOX PULLER Type 2 diabetes mellitus with hyperglycemia, without long-term current use of insulin (HCC) POCT HEMOGLOBIN A1C Routine 06/08/2024 3 :57 PM CDT Type 2 diabetes mellitus with hyperglycemia, without long-term current use of insulin (HCC) EGFR Routine 03/15/2024 3:49 PM CDT from Last 3 Months or Most Recently Relevant to Health Maintenance Results * POCT glucose (12/13/2024 2:25 PM BOX PULLER) Glucose Blood, POC 132 mg/dL Comment:None Blood 12/13/2024 2:25 PM BOX PULLER us Felisha Erickson MD POINT OF CARE TEST ORDERABLES Fi nal Result * (ABNORMAL) POCT hemoglobin A1c (06/08/2024 3:57 PM CDT) Hemoglobin A1C, POC 6.6 4.0 - 5.6 % Comment:None Capillary blood 06/08/2024 3 :57 PM CDT us Felisha Erickson MD POINT OF CARE TEST ORDERABLES Fi nal Result * eGFR (03/15/2024 3:49 PM CDT) Pathologist [facility] eGFR 86 >=60 mL/min/1. 73 m2 Comment: [...] LAB BLOOD ORDERABLES Final Resu lt JEFFY [address] [facility] Department [place] [address] from Last 3 Months or Most Recently Relevant to Health Maintenance Insurance IDPA Member Subscriber Plan / Payer (Ef fective 2021-Present) Name:Mia Mcintosh Relation to Subscriber:Self Name:Mia Mcintosh Payer ID:[id number] Group ID:Not on file Type:MEDICAID [place] Address: [address] IDPA Member Subscriber Plan / Payer (Ef fective 2022-Present) Name:Mia Mcintosh Relation to Subscriber:Self Name:Mia Mcintosh Payer ID:[id number] Group ID:Not on file Type:MEDICAID [place] Address: [place] [id number] [place] [address] Care Teams Director Of Patient Safety Relationship Specialty Start Date End Date Sandra Breen NP [address] [place] [address] PCP - General Family Medicine 02/04/21 Noelle Gastelum MD [address] [place] [address] Shovel Operator Cardiology 10/04/21 Kaiser Sam NP [address] [place] [address] [place] [address] Nurse Practitioner Nurse Practitioner 01/21/22 Paola Kim, PT Physical Therapist Physical Therapy 02/13/22 Venus Jurado PA [address] [place] [address] [place] [address] Physician Video Specialist Orthopedic Surgery 07/28/23
--- OUTSIDE RECORDS SUMMARY | 2025-02-17 13:37 | XMS_ITS | CONTINUITY OF CARE DOCUMENT ---
Author Name ninoska xiao Address Unknown Organization [facility] Address [address] [place] [address] Phone [phone] Care Team Providers Care Assembly Instructions Writer Name Role Phone Norm Morley MD Unavailable [phone] [employer] GENERATING PLANT SUPERINTENDENT, PAO A Unavailable ALVA GENERATING PLANT SUPERINTENDENT, PAO A Unavailable PROBLEMS Condition Status Date Provider Notes Essential hypertension active oNrm Morley MD Hyperlipidemia active Norm Morley MD Diabetes mellitus, type 2 active Norm horton MD SHWETA active Norm Morley MD Anxiety active Norm Morley MD Hx of supraventricular tachycardia (SVT) active 02/22 Norm Morley MD Chest tightness active Norm Morley MD Shortness of breath active Norm Morley MD ENCOUNTERS Date Type Provider Location Encounter Diag nosis 1 - 1 In-person encounter Office Visit Norm Morley MD [facility] Shortness of breath 0 - 1 In-person encounter Office Visit Norm Morley MD [facility] Essential hypertensionHyperlipidemiaDiabetes mellitus, type 2OSAAnxietyHx of supraventricular tachycardia (SVT)Chest tightness VITAL SIGNS Date Observation Value Provider Body Mass Index (Ratio) 38.59 kg/m2 Artie Iniguez blood pressure, cuff size regular Ke rri Gruenenfelder blood pressure, diastolic 90 mm[Hg] Ke rri Gruenenfelder blood pressure, systolic 146 mm[Hg] Santos ri Gruenenfelder oxygen saturation, oximetry 95 % Donna Grsunilnenfelder respiratory rate E&M 12 /min Donna G ruenenfelder pulse rate 88 /min Donna Tomase lder weight E&M 211 [lb_av] Donna Tomase lder height E&M 62 [in_i] Donna Roshan lder Body Mass Index (Ratio) 38.22 kg/m2 Estevan Morley MD blood pressure, cuff size regular Ke rri Gruenenfelder blood pressure, diastolic 90 mm[Hg] Ke rri Gruenenfelder blood pressure, systolic 140 mm[Hg] Santos ri Gruenenfelder oxygen saturation, oximetry 98 % Donna Goodmannebautistaelder respiratory rate E&M 12 /min Donna Car aletaluisnfelder pulse rate 78 /min Donna Marine lder weight E&M 209 [lb_av] Donna Islas lder height E&M 62 [in_i] Donna Rochasuniljerichochari er ALLERGIES Allergy Name Onset Date Reaction Criticality Status VICODEN Low Criticality active RESULTS Date Observation Value Provider Reference Range Interpretation Location 1 Estimated Glomerular Filtration Rate (calc) 86 mL/min/{1 .73_m2} [facility] >=60 Normal C, [address] [address] 1 NT-pro BNP 236 [facility] <=300 Normal , [address] [address] 1 calcium, serum 9.0 mg/dL [facility] 8.5-10.3 Normal , [place] [address] 1 blood glucose, random 102 mg/dL [facility] 70-199 Normal , [place] [address] 1 creatine, serum 0.83 mg/dL [facility] 0.60-1.10 Normal , [place] [address] 1 urea nitrogen, blood 11 mg/dL [facility] 6-25 Normal C, [place] [address] 1 anion gap, serum 10 mmol/L [facility] 2-15 Normal , [place] [address] 1 carbon dioxide, venous blood 26 mmol/L [facility] 22-32 Normal , [place] [address] 1 chloride, serum 104 mmol/L [facility] 97-110 Normal , [place] [address] 1 potassium, serum 4.1 MMOL/L [facility] 3.3-4.9 Normal , [place] [address] 1 sodium, serum 140 mmol/L [facility] 135-145 Normal [place] [address] 1 thyroid stimulating hormone, serum 1.46 MCIUNIT/M L [facility] 0.30-4.20 Normal , [place] [address] 1 Absolute Basophils 0.1 K/CUMM [facility] 0.0-0.1 Normal , [place] [address] 1 Absolute Monocytes 0.5 K/CUMM [facility] 0.2-0.8 Normal [place] [address] 1 Absolute Lymphocytes 2.5 K/CUMM [facility] 0.8-3.3 Normal , [place] [address] 1 Absolute Neutrophils 4.0 K/CUMM [facility] 1.5-6.5 Normal [place] [address] 1 nucleated red blood cells as percent of blood leukocytes 0.00 K/CUMM [facility] 0.00-0.01 Normal 1 red blood cell distribution width, size density 45.2 fL [facility] 35.7-48.1 Normal 1 mean corpuscular hemoglobin concentration, RBC 32.9 G/DL [facility] 32.3-35.7 Normal 1 mean corpuscular hemoglobin, RBC 30.8 pg [facility] 27.1-33.3 Normal 1 mean corpuscular volume, RBC 93.4 fL [facility] 81.3-96.4 Normal 1 erythrocyte count, whole blood 4.52 M/CUMM [facility] 3.90-5.20 Normal 1 mean platelet volume 12.6 fL [facility] 9.1-12.3 High 1 platelet count 199 10*3/uL [facility] 150-400 Normal 1 hematocrit, blood 42.2 % [facility] 35.6-45.5 Normal 1 hemoglobin, blood 13.9 g/dL [facility] 11.9-15.5 Normal HISTORY OF MEDICATION USE Medication Status Instructions Dates Provider Indications Com ments furosemide 40 mg tablet active TAKE 1 TABLET BY MOUTH EVERY DAY Maisha Em ibuprofen 800 mg tablet active TAKE 1 TABLET BY MOUTH TWICE DAILY FOR 10 DAYS Donna Duran albuterol sulfate 90 mcg/actuation HFA aerosol inhaler active INHALE 2 PUFFS BY MOUTH EVERY 4 TO 6 HOURS NEEDED Donna Duran citalopram 40 mg tablet active TAKE 1 TABLET BY MOUTH DAILY Norm Morley MD cyclobenzaprine 10 mg tablet active TAKE 1 TABLET BY MOUTH THREE TIMES DAILY Norm Morley MD lisinopril 10 mg tablet active TAKE 1 TABLET BY MOUTH EVERY DAY Norm Morley MD buspirone 10 mg tablet active TAKE 2 TABLETS BY MOUTH TWICE DAILY Norm Morley MD metoprolol succinate 50 mg tablet extended release 24 hr active Take 1 tablet by mouth once a day Donna Duran metformin 500 mg tablet active TAKE 1 TABLET BY MOUTH TWICE DAILY Norm Morley MD lamotrigine 150 mg tablet active TAKE 1 TABLET BY MOUTH DAILY Norm Morley MD atorvastatin 40 mg tablet active TAKE 1 TABLET BY MOUTH EVERY EVENING Norm Morley MD SOCIAL HISTORY Date Observation Value Provider smoking status Never smoker Norm Morley MD number of grandchildren Norm Morley MD INSURANCE PROVIDERS Payer name Policy type / Coverage type [employer] party [employer] [facility] Medicaid 1 [id number] ADVANCE DIRECTIVES Name Date DISCUSSED - NO DECISION MADE TREATMENT PLAN Date Name Performer Cardiology Norm Morley MD Cardiology Norm Morley MD Cardiology Norm Morley MD Cardiology Norm Morley MD Cardiology Norm Morley MD Cardiology:see above Hx SVT Serjio Blackwell NP Cardiology:Uses CPAP on regular basis. Gina Yatesluri BRENDA Cardiology:A1c 7.8 Her updated medication list for this problem includes: Lisinopril 10 Mg Tablet (Lisinopril) ..... Take 1 tablet by mouth every day Metformin 500 Mg Tablet (Metformin) ..... Take 1 tablet by mouth twice daily Gina Blackwell NP Cardiology: H er updated medication list for this problem includes: Atorvastatin 40 Mg Tablet (Atorvastatin) ..... Take 1 tablet by mouth every evening Gian Yatesluri BRENDA Cardiology:BP 140/90 H er updated medication list for this problem includes: Metoprolol Succinate 50 Mg Tablet Extended Release 24 Hr (Metoprolol succinate) ..... Take 1 tablet by mouth once a day Lisinopril 10 Mg Tablet (Lisinopril) ..... Take 1 tablet by mouth every day Gina Yatesluri CONSULTING PROJECT DIRECTOR Date Name CBC (INCLUDES DIFF/P LT) TSH, free T4, total T3 Stress Cardiac PET-C T BASIC METABOLIC PANE L W/EGFR PROBNP, N TERMINAL TSH, free T4, total T3 PROBNP, N TERMINAL Holter Monitor 48 hr Stress Cardiac PET-C T HISTORY OF PROCEDURES Procedure Date Procedure Name Provider Procedure Notes S tatus EKG Norm Morley MD complete d
--- OUTSIDE RECORDS SUMMARY | 2025-02-17 13:38 | XMS_ITS | Clinical Summary ---
Author Organization [facility] Address [facility] [place] [address] Care Team Providers Care Classifier Tender Name Role Phone Non-Staff, Provider Primary Care Provider Kristopher laboctavio Allergies Active Allergy Reactions Criticality Noted Date Comments Hydrocodone GI Upset 06/10/2023 Medications No known medications Encounters Date Type Department Care Team Description 02/08/2025 2:37 PM CDT - 02/08/2025 5:00 PM CDT Emergency [facility] [place] [address] Neha Sol PA Arm Pain Discharge Disposition: Left Against Medical Advice 02/08/2025 Travel from Last 3 Months Social History Tobacco Use Types Packs/Day Years Used Date Smoking Tobacco: Never Smokeless Tobacco: Never Tobacco Cessation:Counseling Given: Not Answered Alcohol Use Standard Drinks/Week Comments Not Currently 0 (1 standard drink = 0.6 oz pur e alcohol) Comments No Sex and Gender Information Value Date Recorded Sex Assigned at Female 02/08/2025 2:17 PM CDT Legal Sex Female 4:30 PM CDT Gender Identity Not on file Sexual Orientation Not on file Last Filed Vital Signs Vital Sign Reading Time Taken Comments Blood Pressure 118/91 02/08/2025 2:07 PM CDT Pulse 80 02/08/2025 2:07 PM CDT Temperature 36.4 C (97.5 F) 02/08/2025 2:07 PM CDT Respiratory Rate 22 02/08/2025 2:07 PM CDT Oxygen Saturation 100% 02/08/2025 2:07 PM CDT Inhaled Oxygen Concentration - - Weight 82.1 kg (181 lb) 02/08/2025 2:07 PM CDT Height 157.5 cm (5' 2 ) 02/08/2025 2:07 PM CDT Body Mass Index 33.11 02/08/2025 2:07 PM CDT Plan of Treatment Health Maintenance Due Date Last Done Comments Cervical Cancer Screening Pa p Smear (Age 30 to 64) Every 3 Years 1974 Colorectal Cancer Screening Colonoscopy (10 Years) 1974 Annual Physical 1977 Hepatitis C 1992 Hepatitis B Vaccines (1 of 3 - 19+ 3-dose series) 1993 Cervical Cancer Screening Pa p with HPV Testing (Age 30 to 64) Every 5 Years 2004 Cervical Cancer Screening with HPV 2004 Mammogram Screening 2014 COVID-19 Vaccine ( - 2023-2 5 season) 2024 Zoster Vaccines (1 of 2) 2024 DTaP, Tdap and Td Vaccines ( 2 - Td or Tdap) 03/21/2026 03/21/2016 Pneumococcal Vaccine: 50+ Years Completed Meningococcal B Vaccine Aged Out No l onger eligible based on patient's age to complete this topic Meningococcal Vaccine Aged Out No jarek lisa eligible based on patient's age to complete this topic RSV Immunizations Under 20 Months Aged Out No longer eligible based on patient's age to complete this topic Procedures Procedure Name Priority Date/Time Associated Diagnosis Comments TROPONIN, QUANT STAT 02/08/2025 2:44 PM CDT COMPREHENSIVE METABOLIC PANEL STAT 02/08/2025 2:44 PM CDT CBC W/DIFF AUTOMATED STAT 02/08/2025 2:44 PM CDT XR CHEST PORTABLE STAT 02/08/2025 2:3 6 PM CDT from Last 3 Months Results * (ABNORMAL) COMPREHENSIVE METABOLIC PANEL (02/08/2025 2:44 PM CDT) GLUCOSE 95 70 - 99 MG/DL 02/08/2025 3:15 PM CDT [facility] BUN 12 7 - 18 MG/DL 02/08/2025 3:15 PM CDT [facility] CREATININE S/P/B 0.88 0.55 - 1.02 MG/DL 02/08/2025 3:15 PM CDT [facility] SODIUM S/P/B 137 136 - 145 MMOL/L 02/08/2025 3:15 PM CDT [facility] POTASSIUM S/P/B 3.4(L) 3.5 - 5.1 MMOL/L 02/08/2025 3:15 PM CDT [facility] CHLORIDE S/P/B 105 97 - 115 MMOL/L 02/08/2025 3:15 PM CDT [facility] CO2 26.9 21 - 32 MMOL/L 02/08/2025 3:15 PM CDT [facility] CALCIUM S/P/B 8.4(L) 8.5 - 10.1 MG/DL 02/08/2025 3:15 PM CDT [facility] BILIRUBIN TOTAL S/P/B 0.6 0.2 - 1.2 MG/DL 02/08/2025 3:15 PM CDT [facility] Comment: THIS ASSAY IS NOT RECOMMENDED FOR PATIENTS UNDERGOING TREATMENT WITH ELTROMBOPAG DUE TO THE POTENTIAL FOR FALSELY ELEVATED RESULTS. TOTAL PROTEIN S/P/B 7.6 6.4 - 8.2 G/DL 02/08/2025 3:15 PM CDT [facility] ALBUMIN S/P/B 3.8 3.4 - 5.0 G/DL 02/08/2025 3:15 PM CDT [facility] AST 15 15 - 37 U/L 02/08/2025 3:15 PM CDT [facility] ALT 19 14 - 55 U/L 02/08/2025 3:15 PM CDT [facility] ALKALINE PHOSPHATASE S/P/B 81 50 - 136 U/L 02/08/2025 3:15 PM CDT [facility] ANION GAP 5.1 2 - 10 MMOL/L 02/08/2025 3:15 PM CDT [facility] BUN CREATININE RATIO 13.7 6 - 26 02/08/2025 3:15 PM CDT [facility] A/G RATIO 1.0 1.0 - 2.0 RATIO 02/08/2025 3:15 PM CDT [facility] GFR ESTIMATE 80(L) >90 ML/MIN/1.7 3 M2 02/08/2025 3:15 PM CDT [facility] Comment: NOTE: eGFR is not calculated for patients <18 years of age or gender unknown. This is an estimated GFR calculation using the new CKD EPI creatinine equation without race and so does not require a correction factor for race. This estimated GFR should not be used for calculating drug doses. 02/08/2025 2:44 PM CDT [facility] Final Result [facility] [address] [place] [address], [place] [phone] * CBC W/DIFF AUTOMATED (02/08/2025 2:44 PM CDT) WBC 10.32 4.5 - 11.0 x10'3/uL 02/08/2025 3:18 PM CDT [facility] RBC 4.83 4.20 - 5.40 x10'6/uL 02/08/2025 3:18 PM CDT [facility] HGB 14.8 12.0 - 16.0 G/DL 02/08/2025 3:18 PM CDT [facility] HCT 44.8 38.0 - 48.0 % 02/08/2025 3:18 PM CDT [facility] MCV 92.8 81.0 - 99.0 FL 02/08/2025 3:18 PM CDT [facility] MCH 30.6 27.0 - 31.0 PG 02/08/2025 3:18 PM CDT [facility] MCHC 33.0 32.0 - 36.0 G/DL 02/08/2025 3:18 PM CDT [facility] RDW 13.3 11.5 - 14.5 % 02/08/2025 3:18 PM CDT [facility] PLT 215 130 - 400 x10'3/uL 02/08/2025 3:18 PM CDT [facility] MPV 11.3 9.3 - 12.2 FL 02/08/2025 3:18 PM CDT [facility] DIFFERENTIAL TYPE AUTOMATED DIFFERENTIAL 02/08/2025 3:18 PM CDT [facility] NEUTROPHILS % 67.7 % 02/08/2025 3:18 PM CDT [facility] LYMPHOCYTES % 22.7 % 02/08/2025 3:18 PM CDT [facility] MONOCYTES % 6.2 % 02/08/2025 3:18 PM CDT [facility] EOSINOPHILS 1.4 % 02/08/2025 3:18 PM CDT [facility] BASOPHILS 0.6 % 02/08/2025 3:18 PM CDT [facility] IMMATURE GRANS % 1.4 % 02/09/20 3:18 PM CDT [facility] ABS. NEUTROPHILS 7.00 1.80 - 7.70 x10'3/uL 02/08/2025 3:18 PM CDT [facility] ABS. LYMPHOCYTES 2.34 1.00 - 4.80 x10'3/uL 02/08/2025 3:18 PM CDT [facility] ABS. MONOCYTES 0.64 0.24 - 0.86 x10'3/uL 02/08/2025 3:18 PM CDT [facility] ABS. EOSINOPHILS 0.14 0.04 - 0.36 x10'3/uL 02/08/2025 3:18 PM CDT [facility] ABS. BASOPHILS 0.06 0.01 - 0.08 x10'3/uL 02/08/2025 3:18 PM CDT [facility] ABS. IMMATURE GRANULOCYTES 0.14 0.00 - 0.49 x10'3/uL 02/08/2025 3:18 PM CDT [facility] 02/08/2025 2:44 PM CDT [facility] Final Result Performing Organization Address City/[facility]/ZIP Co de Phone Number [facility] [address] [place] [address], [place] [phone] * TROPONIN, QUANT (02/08/2025 2:44 PM CDT) TROPONIN I HIGH SENSITIVITY 4 <54 ng/L 02/08/2025 3:15 PM CDT [facility] Comment: HIGH DOSES OF BIOTIN, TROPONIN-SPECIFIC AUTOANTIBODIES, AND ANTIBODY THERAPY CONTAINING HAMA MAY INTERFERE WITH THIS TEST RESULT. CORRELATION TO CLINICAL HISTORY AND PRESENTATION RECOMMENDED. 02/08/2025 2:44 PM CDT [facility] Final Result Performing Organization Address City/[facility]/ZIP Co de Phone Number [facility] [address] [place] [address], [place] [phone] * XR CHEST PORTABLE (02/08/2025 2:36 PM CDT) Anatomical Region Laterality Modality Chest Radiographic Alexandra ging 02/08/2025 2:46 PM CDT Impressions 02/08/2025 2:51 PM CDT Impression: No acute findings. Referred By: Interpreted By: Hira Cota MD, 02/08/2025 2:46 PM Narrative 02/08/2025 2:51 PM CDT [place] [address] Examination: Chest 1 view portable History: Right arm numbness DATE/TIME: 02/08/2025 2:26 PM Comparison: June 10, 2023 Technique: AP upright portable view of the chest was obtained. Findings: Heart size, mediastinal contours and pulmonary vasculature are within normal limits. No pulmonary consolidation, pleural effusion or pneumothorax. No acute osseous abnormality. Minimal lateral curvature of the spine. Procedure Note Hira Cota MD - 02/08/2025 [place] [address] Examination: Chest 1 view portable History: Right arm numbness DATE/TIME: 02/08/2025 2:26 PM Comparison: June 10, 2023 Technique: AP upright portable view of the chest was obtained. Findings: Heart size, mediastinal contours and pulmonary vasculature arewithin normal limits. No pulmonary consolidation, pleural effusion orpneumothorax. No acute osseous abnormality. Minimal lateral curvature ofthe spine. Impression: No acute findings. Referred By: Interpreted By: Hira Cota MD, 02/08/2025 2:46 PM [facility] Final Result from Last 3 Months Insurance MEDICAID Care Teams Classifier Tender Relationship Specialty Start Date End Date Non-Staff, Provider PCP - General UNKNOWN PHYSICIAN SPECIALTY 02/08/25
--- OUTSIDE RECORDS SUMMARY | 2025-02-17 13:38 | XMS_ITS | Clinical Summary ---
Author Organization [facility] Address [address] [place] [address] Care Team Providers Care Pipe Supervisor Name Role Phone Marisela Shepherd AUTOMATION SALES MANAGER-MANAGEMENT ACCOUNTANT Primary Care Provider [phone] Source Comments [facility],non-owned Affiliates and Associated Physician Practices is amultiple site organization consisting of ambulatory clinics and hospital sitesin [place], [place], [place] and [place]. This disclosure is being madepursuant to the Care Everywhere program and may not contain all information available regarding this patient. Last updated 18.[facility] Allergies Active Allergy Reactions Criticality Noted Date Comments Hydrocodone-Acetaminophen Vomiting 02/19/2018 Medications * Be aware that medications may not be up to date on this document. Alwaysverify current medications with the patient. ibuprofen (MOTRIN) 800 MG tablet ibuprofen 800 mg tablet Active cyclobenzaprin e (FLEXERIL) 10 MG tablet cyclobenzaprine 10 mg tablet Active ergocalciferol (DRISDOL) 54082 units capsule ergocalciferol (vitamin D2) 50,000 unit capsule Active propranolol (INDERAL) 20 MG tablet propranolol 20 mg tablet Active LISINOPRIL PO Active Active Problems No known active problems Social History Tobacco Use Types Packs/Day Years Used Date Smoking Tobacco: Never Smokeless Tobacco: Never Alcohol Use Standard Drinks/Week Comments No 0 (1 standard drink = 0.6 oz pur e alcohol) Comments Unknown Sex and Gender Information Value Date Recorded Sex Assigned at Female 09/03/2021 10:47 AM TABLE GAMES SHIFT MANAGER Legal Sex Female 9:03 PM TABLE GAMES SHIFT MANAGER Gender Identity Female 09/03/2021 10:47 AM TABLE GAMES SHIFT MANAGER Sexual Orientation Straight 09/03/2021 10 :47 AM TABLE GAMES SHIFT MANAGER Last Filed Vital Signs Vital Sign Reading Time Taken Comments Blood Pressure 132/94 10/10/2019 10:05 AM TABLE GAMES SHIFT MANAGER Pulse 103 10/10/2019 10:05 AM TABLE GAMES SHIFT MANAGER Temperature 36.5 C (97.7 F) 10/10/2019 10:05 AM TABLE GAMES SHIFT MANAGER Respiratory Rate 16 04/18/2019 1:21 PM CDT Oxygen Saturation 100% 04/18/2019 1:21 PM CDT Inhaled Oxygen Concentration - - Weight 86.2 kg (190 lb) 11/08/2019 9:36 AM TABLE GAMES SHIFT MANAGER Height 157.5 cm (5' 2 ) 11/08/2019 9:36 AM TABLE GAMES SHIFT MANAGER Body Mass Index 34.75 11/08/2019 9:36 AM TABLE GAMES SHIFT MANAGER Plan of Treatment Health Maintenance Due Date Last Done Comments COLOGUARD (AGES 45-75) - COL ON CA SCREENING 1974 COLON MONITORING 1974 COLONOSCOPY - COLON CA SCREENING 1974 CT COLONOGRAPHY - COLON CA SCREENING 1974 Colorectal Cancer Screening 1974 FIT - COLON CA SCREENING 1974 FLEX SIG - COLON CA SCREENING 1974 LIPID TESTING 1974 MAMMOGRAM 1974 HIV SCREENING 1989 HEPATITIS C SCREENING 12/03/1992 DTAP/TDAP/TD VACCINES (1 - Tdap) 1993 HEPATITIS B VACCINE (1 of 3 - 19+ 3-dose series) 1993 SCREENING FOR DIABETES 10/10/2019 COVID-19 VACCINE (1 - 2023-2 5 season) 2024 DEPRESSION SCREENING 10/26/2024 PNEUMOCOCCAL VACCINE 50+ (1 of 1 - PCV) 2024 ZOSTER VACCINE (1 of 2) 2024 INFLUENZA VACCINE (Season Ended) 2025 08/29/2019, 10/01/2017 HIB VACCINE Aged Out No longer eligi ble based on patient's age to complete this topic HPV VACCINE Aged Out No longer eligi ble based on patient's age to complete this topic MENINGOCOCCAL (Group B) VACCINE SHARED DECISION-MAKING Aged Out No longer eligible based on patient's age to complete this topic MENINGOCOCCAL GROUPS A/C/Y/W VACCINE Aged Out No longer eligible b ased on patient's age to complete this topic Insurance [facility] Care Teams Pipe Supervisor Relationship Specialty Start Date End Date Marisela Shepherd, AUTOMATION SALES MANAGER-MANAGEMENT ACCOUNTANT [address] [place], [place] [id number] PCP - General 04/12/19
--- OUTSIDE RECORDS SUMMARY | 2025-02-17 13:38 | XMS_ITS | Clinical Summary ---
Author Organization [facility] Address [address] [place] [address] Phone Care Team Providers Care Aerophysics Engineer Name Role Phone Sandra Breen APRN, ASHELY Primary Care Provider Zeus Moncada MD Unavailable Allergies Active Allergy Reactions Criticality Noted Date Comments Hydrocodone-Acetaminophen Vomiting 02/19/2018 Medications ibuprofen (MOTRIN) 800 MG Tablet TK 1 T PO TID 0 8 Active cyclobenzaprin e (FLEXERIL) 10 MG Tablet TK 1 T PO TID PRN 0 8 Active ALBUTEROL IN take by inhalation. Active atorvastatin (LIPITOR) 40 MG Tablet Take 40 mg by mouth daily. Active citalopram (CeleXA) 20 MG Tablet Take 40 mg by mouth daily. Active hydrOXYzine (ATARAX) 25 MG Tablet Take 25 mg by mouth every 6 hours as needed. Active lamoTRIgine (LaMICtal) 25 MG Tablet Take 25 mg by mouth daily. Active lisinopril (PRINIVIL, ZESTRIL) 10 MG Tablet Take 10 mg by mouth daily. Active metoprolol Succinate (TOPROL-XL) 25 MG TABLET SR 24 HR Take 25 mg by mouth daily. Active oxyCODONE-acet aminophen (PERCOCET) 5-325 MG Tablet 0 03/29/202 2 Active aspirin 20.25 MG Chewable Tablet 2 Active ergocalciferol (VITAMIN D) 82162 UNIT Capsule ergocalciferol (vitamin D2) 50,000 unit capsule Active traMADol (ULTRAM) 50 MG TabletIndicati ons:Right knee sprain Take 1 Tablet by mouth every 8 hours as needed for Moderate or more severe pain. 12 Tablet 4 Active Active Problems Problem Noted Date Diagnosed Date Anxiety 01/30/2022 Non morbid obesity 01/30/2022 SHWETA (obstructive sleep apnea) 02/23/2018 Essential (primary) hypertension 02/23/2018 Family History Medical History Relation Name Comments Cataract Father Heart Disease Father High Cholesterol Father Hypertension Father Relation Name Status Comments Father Social History Tobacco Use Types Packs/Day Years Used Date Smoking Tobacco: Never Smokeless Tobacco: Never Tobacco Cessation:Counseling Given: Not Answered Alcohol Use Standard Drinks/Week Comments Yes 0 (1 standard drink = 0.6 oz pur e alcohol) OCCASIONAL Sexually Active Control Partners Comments Yes Male Comments No Sex and Gender Information Value Date Recorded Sex Assigned at Not on file Legal Sex Female 7:34 PM CDT Gender Identity Not on file Sexual Orientation Not on file Last Filed Vital Signs Vital Sign Reading Time Taken Comments Blood Pressure 130/93 07/14/2024 8:03 PM CDT Pulse 87 07/14/2024 8:03 PM CDT Temperature 35.9 C (96.6 F) 07/14/2024 8:03 PM CDT Respiratory Rate 18 07/14/2024 8:03 PM CDT Oxygen Saturation 98% 07/14/2024 8:03 PM CDT Inhaled Oxygen Concentration - - Weight 88.5 kg (195 lb) 07/14/2024 8:03 PM CDT Height 157.5 cm (5' 2 ) 07/14/2024 8:03 PM CDT Body Mass Index 35.67 07/14/2024 8:03 PM CDT Plan of Treatment Health Maintenance Due Date Last Done Comments Hepatitis C Virus (HCV) Screening 1974 Mammogram 1974 Hepatitis B Immunization (1 of 3 - 19+ 3-dose series) 1993 Pap Smear 1995 Cervical Cancer Screening (CCS) 2004 HPV/Cotest 2004 Colonoscopy 2019 Colorectal Cancer Screening 2019 SARS-COV-2 Immunization ( - 2023- season) 2024 Cologuard 2024 Immunochemical Fecal Occult Blood 2024 Pneumococcal Immunization (50+ years) (1 of 1 - PCV) 2024 Zoster Immunization (1 of 2) 2024 Respiratory Syncytial Virus (RSV) Immunization (Adult) (1 - 1-dose 75+ series) 2049 DTaP/Tdap/Td Immunization Discontinued 03/21/2016 TdaP Immunization Completed 03/21/2016 Influenza Immunization Completed 4, 08/13/2022, 12/26/2021, Additional history exists Meningococcal Immunization (ACWY) Aged Out No longer eligible based on patient's age to complete this topic Rotavirus Immunization Aged Out No lo nger eligible based on patient's age to complete this topic Insurance MEDICAID [place] Care Teams Aerophysics Engineer Relationship Specialty Start Date End Date Sandra Breen, [employer] CLIPPER, INSPECTOR AND ADJUSTER [employer] [address] [place] [address] PCP - General Advanced Practice Nurse 01/08/22 Zeus Moncada MD [address] [place] [id number] Consulting Physician Pulmonary Disease 08/04/22
--- OUTSIDE RECORDS SUMMARY | 2025-02-17 13:38 | XMS_ITS | Data Portability ---
Author Organization [facility] Roman Address [address] [place] [address] Care Team Providers Care Aerospace Engineer Name Role Phone ROMULO MARLOW OTHER SANDRA CALLE Primary Care Provider [phone] Assessment Encounter Date Assessment Date Assessment LastModified by Organization Details LastModified Time 11/05/2023 11/05/2023 Ms. Mcintosh presented in office today c/o cough, congestion, body aches, head ache and yellowish mucus x 3 days. Not available 11/05/2023 15:57:28 02/08/2024 02/08/2024 Ms. Mcintosh presented in office today for f/u appointment. Patient requests new frame operator referral, indicating that she wants to see a different frame operator. Not available 02/16/2024 13:02:22 06/14/2024 06/14/2024 Ms. Mcintosh presented for a follow-up appointment today. She reports experiencing daily dizzy spells over the past three months, describing the sensation as feeling like she is going to fall. She notes that the frequency and severity of these episodes have worsened over time. Not available 06/19/2024 17:25:24 07/12/2024 07/12/2024 Ms. Mcintosh presented in office today for follow up appointment. Not available 07/25/2024 16:58:23 01/03/2025 01/03/2025 Ms. Mcintosh is here for a follow-up, reporting no new symptoms or concerns. No changes in health since the last visit. Not available 01/03/2025 12:43:29 Plan of Treatment Reminders Order Date Submit Date Provider Last Modified By Organization Details Last Modified Time Details Appointments None recor ded. Lab HbA1c (hemo globi n A1c), blood 2023 024 BELKIS In-Office Order, Internal Use Only DO Not Attach Compendium DO Not Attach Compendium, Do Not Delete/merge, [id number] 16:19:19 HbA1c (hemo globi n A1c), blood 2023 024 In-Office Order, Internal Use Only DO Not Attach Compendium DO Not Attach Compendium, Do Not Delete/merge, [id number] 16:00:09 influ ronald virus A + B + SARS- CoV-2 (COVI D19) Ag panel , rapid IA, upper respi rator y speci men 2023 024 In-Office Order, Internal Use Only DO Not Attach Compendium DO Not Attach Compendium, Do Not Delete/merge, [id number] 16:00:10 Referral podia trist refer ral 2024 025 [facility] [place], [address], [address], [place], [address], 5 09:57:46 gastr dana fan ist refer ral - colon oscop y 2024 025 [facility], [address] , [address], [place], [address], 5 11:03:33 gastr dana fan ist refer ral 2023 024 [email or web address] [facility], [address] [facility] [place], [address], [place], [address], 5 15:05:[address] refer ral 2023 024 BELKIS [facility], [address], [address], [place], [address], 13:49:18 endoc rinol ogy refer ral 2023 024 [place], [address] , [place], [address], 18:04:43 Procedures None recor ded. Surgeries None recor ded. Imaging None recor ded. Medication Orders Paxlo vid 300 mg (150 mg x 2)-10 0 mg table ts in a dose pack 2023 [id number], [address] , [place], [place], [id number], 15:35:25 Patient TargetsNo targets recorded. Patient Instructions Encounter Date Encounter Id Patient Instructions Last Modified By Organization Details Last Modified Time 11/05/2023 [id number] - Always present to ER or Urgent Care with any progression of/alarming symptoms, significant changes in symptoms or any concerning or urgent matters Not available 11/05/2023 15:03:49 02/08/2024 [id number] A healthy lifestyle: care instructions Not available 02/08/2024 15:59:50 - Always present to ER or Urgent Care with any progression of/alarming symptoms, significant changes in symptoms or any concerning or urgent matters Not available 02/08/2024 15:52:29 06/14/2024 [id number] vertigo: care instructions Not available 06/14/2024 10:18:44 vertigo: exercises Not available 06/14/2024 10:18:44 A healthy lifestyle: care instructions Not available 06/14/2024 10:18:44 hemorrhoids: car e instructions Not available 06/14/2024 10:33:21 - Always present to ER or Urgent Care with any progression of/alarming symptoms, significant changes in symptoms or any concerning or urgent matters Not available 06/14/2024 10:04:34 07/12/2024 [id number] - Always present to ER or Urgent Care with any progression of/alarming symptoms, significant changes in symptoms or any concerning or urgent matters Not available 07/25/2024 16:59:36 01/03/2025 [id number] - Always present to ER or Urgent Care with any progression of/alarming symptoms, significant changes in symptoms or any concerning or urgent matters Not available 01/03/2025 12:43:11 Reason for Referral Diesel Engine Engineer Referral for Finley praventricular tachycardia Referring Physician: Sandra Calle [facility], Encounter Date: 02/08/2024 Endocrinology Referral for T ype 2 diabetes mellitus Referring Physician: Sandra Calle [facility], Encounter Date: 02/08/2024 Party Supply Specialist Referral for Screening for malignant neoplasm of colon Referring Physician: Sandra Calle [facility], Encounter Date: 06/14/2024 Party Supply Specialist Referral for Screening for malignant neoplasm of colon colonoscopy Referring Physician: Sandra Calle [facility], Encounter Date: 01/03/2025 Straightening Machine Operator Referral for Type 2 diabetes mellitus Referring Physician: Sandra Calle [facility], Encounter Date: 01/03/2025 Results Created Date Observation Date Name Description Value Unit Range Abnormal Flag Note LastModifiedBy Organization Detail LastModifiedTime 11/05/1911/05/2023 HbA1c (hemo globi n A1c), blood HbA1c 7.2 Not Available In-Office Order Internal Use Only DO Not Attach Compendium DO Not Attach Compendium, Do Not Delete/merge, [id number] 11/05/2023 15:04:20 11/05/1911/05/2023 influ ronald virus A + B + SARS- CoV-2 (COVI D19) Ag panel , rapid IA, upper respi rator y speci men Flu A negati ve Not Available In-Office Order Internal Use Only DO Not Attach Compendium DO Not Attach Compendium, Do Not Delete/merge, [id number] 11/05/2023 15:03:57 11/05/1911/05/2023 influ ronald virus A + B + SARS- CoV-2 (COVI D19) Ag panel , rapid IA, upper respi rator y speci men Flu B negati ve Not Available In-Office Order Internal Use Only DO Not Attach Compendium DO Not Attach Compendium, Do Not Delete/merge, [id number] 11/05/2023 15:03:57 11/05/19 24 11/05/2023 influ ronald virus A + B + SARS- CoV-2 (COVI D19) Ag panel , rapid IA, upper respi rator y speci men Rapid SARS CoV 2 Ag, QL IA, respiratory specimen positi ve Not Available In-Office Order Internal Use Only DO Not Attach Compendium DO Not Attach Compendium, Do Not Delete/merge, [id number] 11/05/2023 15:03:57 02/23/20 24 02/23/2024 HbA1c (hemo globi n A1c), blood HbA1c 6.3 Not Available In-Office Order Internal Use Only DO Not Attach Compendium DO Not Attach Compendium, Do Not Delete/merge, [id number] 02/08/2024 15:47:11 06/08/20 24 06/08/2024 Hemog lobin A1c/H emogl obin. total in Blood hemoglobin A1C, POC 6.6 % low: 4%high : 5.6% Hemog lobin A1C, POC 6.6 4.0 - 5.6 % Not Available Not Available 01/02/2025 04:10:59 06/08/20 24 06/08/2024 Hemog lobin A1c/H emogl obin. total in Blood interpretati on and review of laboratory results Abnorm al Not Available Not Available 04:10:59 04/11/20 24 04/11/2024 PET, heart No observ ation record ed. [facility] [address], [place], [address], 04/21/2024 17:26:43 08/29/20 24 08/29/2024 XR, chest , 2 view No observ ation record ed. [facility] [address], [place], [address], 08/31/2024 09:23:49 Result Notes None recorded. Problems Name Problem SNOMED Code Status Onset Date Resolution Date Notes Provider Name and Address Organization Details Recorded Time Bipolar disorder 83359399 Active 2018 SANDRA CALLE NP Attn: Goldie vargas,[address], [place], [address], [facility] 2 17:55:04 Obesity 594528231 Active 2018 Ping Henriquez APN, USABILITY SPECIALIST-C Attn: Goldie vargas,[address] [place], [address], [facility] 9 12:27:00 Bilateral knee pain Active 2018 Ping Henriquez APN, USABILITY SPECIALIST-C Attn: Goldie vargas,[address] [place], [address], [facility] - [facility] 9 12:37:29 Spasm of back muscles 050289454 Active Marisela stevenson, [place] - [facility] 5 16:04:47 Supravent ricular tachycard ia 0162640 Active 2020 SANDRA CALLE NP Attn: Goldie vargas,[address] [place], [address], [facility] - [facility] 2 17:54:57 History of total knee arthropla sty 886735236481 5 Completed 202105/26/2022 SANDRA CALLE NP Attn: Goldie vargas,[address] [place], [address], [facility] 2 13:01:31 Obstructi ve sleep apnea syndrome 07869057 Active 2021 SANDRA CALLE NP Attn: Goldie vargas,[address] [place], [address], [facility] 2 13:03:36 Obstructi ve sleep apnea syndrome 39976377 Active 2021 SANDRA CALLE NP Attn: Goldie vargas,[address], [place], [address], [place] - [facility] 2 13:03:36 Urinary incontine ake 894859667 Active 2021 SANDRA CALLE NP Attn: Goldie vargas,[address], [place], [address], [place] - [facility] 2 13:10:58 Type 2 diabetes mellitus 02282835 Active 2022 SANDRA CALLE NP Attn: Accountrodolfo vargas,[address], [place], [address], [place] - [facility] 4 17:16:35 Chronic pain 33194145 Active Mary Pinon LPN null, [place] - [facility] 5 10:56:06 Essential hypertens ion 79945683 Active SANDRA CALLE NP Attn: Ceerodolfo vargas,[address], [place], [address], [place] - [facility] 2 17:55:12 Borderlin e personali ty disorder Active SANDRA CALLE NP Attn: Goldie vargas,[address], [place], [address], [place] - [facility] 2 17:55:08 Unstable knee 135459418 Active Marisela Shepherd null, [place] - [facility] 5 16:53:00 Plantar fasciitis 349321262 Active Marisela Shepherd [place], [place] - [facility] 5 16:53:00 Disorder of skin 78855401 Active Marisela Shepherd null, [place] - [facility] 5 16:53:00 Hyperlipi demia 13472805 Active SANDRA CALLE NP Attn: Ceerodolfo vargas,[address] [place], [address], [place] - [facility] 2 13:01:52 Shoulder pain 53426210 Active Marisela Shepherd null, [place] - [facility] 5 16:04:47 Knee pain Active Marisela Shepherd null, [place] - [facility] 5 16:04:47 Problem Notes None recorded. Procedures Surgical History Date Name Laterality Status Provider Name and Address Organization Details Recorded Time 11/03/19 19 Total hysterectomy completed Marjan Burton MD Attn: Accounting,[address] , [place], [address], [facility] - [facility] 06/11/2023 09:43:16 12/10/19 18 Joint Injection completed Maxx Bustamante [place] - [facility] 12/10/2017 11:01:57 08/28/20 15 Date of Last Pap Smear completed Carmen Josephmanjula [place] - [facility] 08/28/2015 11:34:51 04/24/20 15 Most Recent Mammogram completed Carmen Claros [place] - [facility] 08/28/2015 11:34:51 10/26/19 11 [facility]2015 11:34:51 Knee Surgery completed Hannah Self MA [place] - [facility] 11/20/2014 16:11:01 Imaging Results Imaging Date Name Status LastModified by Organiz ation Details LastModified Time 04/11/2024 [email or web address] [address], [place], [address], 04/21/2024 17:26:43 08/29/2024 XR, chest, 2 view completed [email or web address] [address], [place], [address], 08/31/2024 09:23:49 Procedure Notes None recorded. Medical Equipment None Reported. Allergies Allergen ID Allergen Name Allergen Category Reaction Reaction Severity Criticality Documentation Date Start Date Code Code System Note Provider Name and Address Organization Details Recorded Time 208582 hydrocodo ne Not available Not available Not available low 01/03/20252022 5489 RxNorm unrec ogniz ed react ion (text : Nause a & Vomit ing, code: 08522 000) (from exter nal [facility] e) Not Available Not Available Not Available 82744 acetamino phen / hydrocodo ne medicatio n vomiting moderate Not available 02/27/2015 20510 2 RxNorm Not Available Not Available Not Available Medications Name Sig Start Date Stop Date Status Note LastModified by Organization Details LastModified Time cyclobenzap rine 10 mg tablet TAKE 1 TABLET BY MOUTH THREE TIMES DAILY active Not Available Not Available No t Available furosemide 40 mg tablet TAKE 1 TABLET BY MOUTH EVERY DAY active Not Available Not Available No t Available medroxyprog esterone 10 mg tablet 08/29 completed Not Available Not Available Not Available atorvastati n 40 mg tablet TAKE 1 TABLET BY MOUTH EVERY EVENING active Not Available Not Available No t Available lamotrigine 150 mg tablet TAKE 1 TABLET BY MOUTH DAILY active Not Available Not Available No t Available metformin 500 mg tablet TAKE 1 TABLET BY MOUTH TWICE DAILY active Not Available Not Available No t Available bupropion HCl SR 150 mg tablet,12 hr sustained-r elease TAKE 1 TABLET BY MOUTH TWICE DAILY 10/15 completed Not Available Not Available Not Available promethazin e-DM 6.25 mg-15 mg/5 mL oral syrup TAKE 5 ML BY MOUTH EVERY 4 TO 6 HOURS NEEDED FOR COUGH 01/03 completed Not Available Not Available Not Available clindamycin HCl 300 mg capsule 03/03 completed Not Available Not Available Not Available citalopram 40 mg tablet TAKE 1 TABLET BY MOUTH DAILY active Not Available Not Available No t Available trazodone 50 mg tablet Take 2 tablets 3 times a day by oral route for 30 days. active Not Available Not Available No t Available azithromyci n 250 mg tablet 02/21 completed Not Available Not Available Not Available ibuprofen 800 mg tablet TAKE 1 TABLET BY MOUTH THREE TIMES DAILY NEEDED 2024 active Not Available Not Available Not Avai lable metoprolol succinate ER 50 mg tablet,exte nded release 24 hr active Not Available Not Available Not Available citalopram 10 mg tablet TAKE 1 TABLET BY MOUTH DAILY FOR A TOTAL DOSE OF 30 MG 06/16 completed Not Available Not Available Not Available Loestrin Fe 11/14 (28-Day) 1 mg-20 mcg (21)/75 mg (7) tablet Take 1 tablet every day by oral route. 2013 active Not Available Not Available Not Avai lable hydrocodone 5 mg-acetamin ophen 325 mg tablet 08/29 completed Not Available Not Available Not Available Celestone Soluspan 6 mg/mL suspension for injection 2 ml by injection 02/21 completed Not Available Not Available Not Available prednisone 20 mg tablet TAKE 1 TABLET BY MOUTH EVERY DAY FOR 5 DAYS 12/26 completed Not Available Not Available Not Available acetaminoph en 300 mg-codeine 30 mg tablet 11/03 completed Not Available Not Available Not Available sulfamethox azole 800 mg-trimetho prim 160 mg tablet 08/29 completed Not Available Not Available Not Available tramadol 50 mg tablet TAKE 1 TABLET BY MOUTH EVERY 8 HOURS NEEDED FOR MODERATE TO SEVERE PAIN 01/03 completed Not Available Not Available Not Available acetaminoph en 500 mg tablet TAKE 1 TABLET BY MOUTH 2 TIMES A DAY FOR 10 DAYS 11/05 completed Not Available Not Available Not Available bupropion HCl SR 100 mg tablet,12 hr sustained-r elease TAKE 1 TABLET BY MOUTH TWICE DAILY 07/16 completed Not Available Not Available Not Available amoxicillin 500 mg tablet TAKE 1 TABLET BY MOUTH THREE TIMES DAILY FOR 10 DAYS 07/16 completed Not Available Not Available Not Available lamotrigine 25 mg tablet TAKE 2 TABLETS BY MOUTH DAILY 12/03 completed Not Available Not Available Not Available Vitamin tablet Take 1 tablet every day by oral route. 11/03 completed Not Available Not Available Not Available oxycodone-a cetaminophe n 5 mg-325 mg tablet TAKE 1 TABLET BY MOUTH EVERY 6 HOURS NEEDED FOR PAIN 11/05 completed Not Available Not Available Not Available propranolol 40 mg tablet TAKE 1 TABLET BY MOUTH TWICE DAILY 08/20 completed Not Available Not Available Not Available citalopram 20 mg tablet TAKE 1 TABLET BY MOUTH DAILY. TOTAL DOSE 30MG 06/16 completed Not Available Not Available Not Available methocarbam ol 750 mg tablet 11/03 completed Not Available Not Available Not Available OneTouch Ultra Test strips USE TO TEST BLOOD SUGAR ONCE DAILY active Not Available Not Available No t Available erythromyci n 5 mg/gram (0.5 %) eye ointment 08/29 completed Not Available Not Available Not Available buspirone 10 mg tablet TAKE 2 TABLETS BY MOUTH TWICE DAILY 01/03 completed Not Available Not Available Not Available lisinopril 10 mg tablet TAKE 1 TABLET BY MOUTH EVERY DAY 2024 active Not Available Not Available Not Avai lable ibuprofen 400 mg tablet 06/21 completed Not Available Not Available Not Available bupropion HCl 75 mg tablet TAKE 1 TABLET BY MOUTH TWICE DAILY active Not Available Not Available No t Available gabapentin 300 mg capsule TAKE 1 CAPSULE BY MOUTH EVERY NIGHT 12/03 completed Not Available Not Available Not Available diclofenac sodium 75 mg tablet,spike yed release TAKE 1 TABLET BY MOUTH TWICE DAILY 2014 active Not Available Not Available Not Avai lable hydroxyzine HCl 25 mg tablet TAKE 1 TO 2 TABLETS BY MOUTH AT BEDTIME NEEDED 12/03 completed Not Available Not Available Not Available metoprolol succinate ER 25 mg tablet,exte nded release 24 hr TAKE 1 TABLET BY MOUTH EVERY DAY 03/03 completed Not Available Not Available Not Available ergocalcife rol (vitamin D2) 1,250 mcg (50,000 unit) capsule Take 1 capsule every week by oral route. 05/29 completed Not Available Not Available Not Available methylpredn isolone 4 mg tablets in a dose pack FOLLOW PACKAGE DIRECTION S 01/03 completed Not Available Not Available Not Available albuterol sulfate HFA 90 mcg/actuati on aerosol inhaler INHALE 2 PUFFS BY MOUTH EVERY 4 TO 6 HOURS NEEDED active Not Available Not Available No t Available propranolol 20 mg tablet TAKE 1 TABLET BY MOUTH TWICE DAILY 02/27 completed Not Available Not Available Not Available cefdinir 300 mg capsule TAKE 1 CAPSULE BY MOUTH EVERY 12 HOURS FOR 7 DAYS 02/17 completed Not Available Not Available Not Available lamotrigine 100 mg tablet TAKE 1 TABLET BY MOUTH DAILY 06/16 completed Not Available Not Available Not Available amoxicillin 875 mg-potassiu m clavulanate 125 mg tablet 01/05 completed Not Available Not Available Not Available buspirone 15 mg tablet TAKE 1 TABLET BY MOUTH TWICE DAILY active Not Available Not Available No t Available Microgestin Fe 1.5/30 (28) 1.5 mg-30 mcg (21)/75 mg (7) tablet 1 po qd active Not Available Not Available N ot Available Ortho Tri-Cyclen LO (28) 0.18 mg/0.215 mg/0.25 mg-25 mcg tablet TAKE ONE TABLET BY MOUTH ONCE DAILY active Not Available Not Available No t Available Tri-Sprinte c (28) 0.18 mg(7)/0.215 mg(7)/0.25 mg(7)-0.035 mg tablet 1 po qd 2013 active Not Available Not Available Not Avai lable Selsun Blue 1 % shampoo APPLY 1 APPLICATI ON EVERY DAY BY TOPICAL ROUTE TO UPPER BACK FOR 21 DAYS 2014 active Not Available Not Available Not Avai lable Caziant (28) 0.1 mg/0.125 mg/0.15 mg-25 mcg tablet TAKE 1 TABLET BY MOUTH EVERY DAY active Not Available Not Available No t Available OneTouch Ultra2 Meter USE DIRECTED active Not Available Not Available No t Available OneTouch Delica Plus Lancet 33 gauge USE TO CHECK BLOOD SUGAR ONCE DAILY active Not Available Not Available No t Available FreeStyle Arun 2 Sensor kit CHANGE EVERY 14 DAYS active Not Available Not Available No t Available Paxlovid 300 mg (150 mg x 2)-100 mg tablets in a dose pack TAKE DIRECTED ON PACK 02/07 completed Not Available Not Available Not Available Ozempic 0.25 mg or 0.5 mg (2 mg/3 mL) subcutaneou s pen injector Inject by subcutane ous route. active Not Available Not Available No t Available Vitals Date Recorded Body height Respiratory rate Body mass index (BMI) Body weight Body temperature Heart rate Oxygen saturation Oxygen saturation in Arterial blood by Pulse oximetry Systolic blood pressure Diastolic blood pressure Provider Name and Address Organization Details Last Updated DateTime 4 157.48 cm 16 /min 37 kg/m2 09944.4 1 g 97.3 [degF] 96 /min 97 % 97 % 119 mm[Hg] 82 mm[Hg] Cornelia [facility] 4 14:37:42 Date Recorded Body height Body mass index (BMI) Body weight Oxygen saturation Oxygen saturation in Arterial blood by Pulse oximetry Heart rate Respiratory rate Body temperature Systolic blood pressure Diastolic blood pressure Provider Name and Address Organization Details Last Updated DateTime 4 157.48 cm 37.3 kg/m2 28017.8 4 g 95 % 95 % 79 /min 16 /min 97.1 [degF] 119 mm[Hg] 79 mm[Hg] Dorina Bucio LPN [facility] 4 15:33:06 Date Recorded Body height Respiratory rate Body mass index (BMI) Body weight Body temperature Heart rate Systolic blood pressure Diastolic blood pressure Provider Name and Address Organization Details Last Updated DateTime 4 157.48 cm 16 /min 36.6 kg/m2 08023.8 2 g 96.8 [degF] 66 /min 154 mm[Hg] 97 mm[Hg] Cornelia Connell MA [facility] 4 09:46:20 Date Recorded Body height Respiratory rate Body mass index (BMI) Body weight Body temperature Heart rate Oxygen saturation Oxygen saturation in Arterial blood by Pulse oximetry Systolic blood pressure Diastolic blood pressure Provider Name and Address Organization Details Last Updated DateTime 4 157.48 cm 16 /min 35.8 kg/m2 04206.6 6 g 96.8 [degF] 81 /min 96 % 96 % 113 mm[Hg] 78 mm[Hg] Cornelia Connell MA [facility] 4 10:22:01 Date Recorded Body height Respiratory rate Body mass index (BMI) Body weight Body temperature Heart rate Oxygen saturation Oxygen saturation in Arterial blood by Pulse oximetry Systolic blood pressure Diastolic blood pressure Provider Name and Address Organization Details Last Updated DateTime 5 157.48 cm 16 /min 33.9 kg/m2 69577.2 9 g 96.4 [degF] 103 /min 96 % 96 % 107 mm[Hg] 78 mm[Hg] Cornelia Connell MA [facility] 5 12:05:19 Social History Question Answer Notes LastModified by Organizat ion Details LastModified Time Tobacco Smoking Status Never Smoker Hannah Self MA [facility], [facility] 11/20/2014 16:11:01 What Is Your Level Of Alcohol Consumption? None [email or web address] Information not available 02/21/2019 Are You Blind Or Do You Have Difficulty Seeing? Yes Glasses Information not available 01/08/2021 What Is Your Level Of Caffeine Consumption? Heavy 4 Cans Soda Per Day Information not available 01/08/2021 How Much Tobacco Do You Chew? None [email or web address] Information not available 02/21/2019 In The 14 Days Before Symptom Onset, Have You Had Close Contact With A Laboratory-confir med COVID-19 While That Case Was Ill? No Information not available 07/16/2021 In The 14 Days Before Symptom Onset, Have You Had Close Contact With A Person Who Is Under Investigation For COVID-19 While That Person Was Ill? No Information not available 07/16/2021 Have You Been To An Area Known To Be High Risk For COVID-19? No Information not available 07/16/2021 Are You Currently Employed? No Information not available 01/08/2021 Are You Deaf Or Do You Have Serious Difficulty Hearing? Yes NIKOLAI In Both Ears Information not available 01/08/2021 What Type Of Diet Are You Following? REGULAR [email or web address] Information not available 02/21/2019 Which Illicit Or Recreational Drugs Have You Used? Denies [email or web address] Information not available 02/21/2019 Are There Any Guns Present In Your Home? No Information not available 02/27/2021 Hard Of Hearing Or Deaf In One Or Both Ears? No Information not available 12/29/2019 Legally Blind In One Or Both Eyes? No Information no t available 12/29/2019 Marital Status [email or web address] Informatio n not available 02/21/2019 What Was The Date Of Your Most Recent Tobacco Screening? 01/03/2025 Information not available 01/03/2025 Performs Monthly Self-breast Exam? Yes Information no t available 12/29/2019 What Is Your Relationship Status? Information not available 01/08/2021 Do You Use Your Seat Belt Or Car Seat Routinely? Yes Information not available 12/26/2021 Do You Have Smoke And Carbon Monoxide Detectors In Your Home? Yes Information not available 01/08/2021 Are You Passively Exposed To Smoke? Yes Information no t available 01/08/2021 General Stress Level High Due To Employment Situation [email or web address] Information not available 02/21/2019 Do You Feel Stressed (tense, Restless, Nervous, Or Anxious, Or Unable To Sleep At Night)? [id number] Information not available 01/08/2021 Do You Use Any Illicit Or Recreational Drugs? No Denies Information not available 01/08/2021 Do You Use Sunscreen Routinely? No Information not available 02/27/2021 Has Tobacco Cessation Counseling Been Provided? Yes Information not available 02/27/2021 On What Date Was Tobacco Cessation Counseling Provided? 01/03/2025 Information not available 01/03/2025 Sex: Female Functional Status Question Answer Note LastModified by Organization D etails LastModified Time Are you able to care for yourself? Yes Information n ot available 01/08/2021 What is your exercise level? None [email or web address] Information not available 02/21/2019 Mental Status None recorded. Family History Relationship Description Onset Age of this Age Resolved Age Notes LastModified by Organization Details LastModified Time Father Heart disease [email or web address] Not available 2014 11:34:51 Father Hypertensive disorder [email or web address] Not available 2014 11:34:51 Father Hyperlipidem ia [email or web address] Not available 2014 11:34:51 Father Cataract [email or web address] Not available 08/28/2015 11:34:51 Medical History Condition Response Anxiety Disorder Y Eating Disorder Y Muscle, Joint, or Bone Problems Y Other Y High Cholesterol Y Urinary Tract Infection Y Hypertension Y Kidney or Bladder Problems Y Depression Y Asthma N Gynecological History Statement/Question Response Flow Heavy Date of LMP 10/26/2018 Sexually Active? Y Menses Monthly N STIs/STDs N Date of Last Pap Smear 08/28/2015 Current Control Method Hysterectom y Most Recent Mammogram 04/24/2015 LMP Approximate Obstetrics History GPAL:G 3 P 0 0 2 0 Type Value Induced 2 Total 3 Immunizations Vaccine Type Date Status Note Provider Nam e and Address Organization Details Recorded Time Tdap 6 completed SANDRA CALLE NP Attn: [address] [place], [address], [facility] 08/13/2022 08:55:48 MMR 6 completed SANDRA CALLE NP Attn: [address] [place], [address], [place] [facility] 08/13/2022 08:55:48 Influenza, split virus, quadrivalent, PF 6 completed SANDRA CALLE NP Attn: [address] [place], [address], [facility] 08/13/2022 08:55:48 Influenza, split virus, quadrivalent, PF 7 completed Not Available [facility] 11/12/2019 02:40:23 Influenza, split virus, quadrivalent, preservative 9 completed Not Available [facility] 11/12/2019 02:49:51 Influenza, split virus, quadrivalent, preservative 2 completed Cornelia Connell MA null, [facility] 12/26/2021 17:28:58 Influenza, split virus, quadrivalent, preservative 2 completed Dorina Bucio LPN null, [place] [facility] 08/13/2022 09:53:40 Influenza, split virus, trivalent, PF 4 completed SANDRA CALLE NP Attn: [address] [place], [address], [facility] 07/25/2024 16:57:38 Pneumococcal conjugate PCV20, polysaccharide QOE839 conjugate, adjuvant, PF 5 completed SANDRA CALLE NP Attn: [address] [place], [address], [facility] 01/03/2025 12:38:49 Past Encounters Encounter ID Performer Location Encounter Start Date Encounter Closed Date Diagnosis/Indication Diagnosis SNOMED-CT Code Diagnosis ICD10 Code Diagnosis Note [id number] [facility] [address] [place] [address] 11/20/2014 15:53:41 11/20/2014 16:31:09 Shoulder pain [id number] Knee pain 17955841 [id number] Hannah Self MA [facility] [address] [place] [address] 11/30/2014 14:51:27 11/30/2014 15:11:19 Spasm of back muscles 473147026 Knee pain 22941757 [id number] [facility] [address] [place] [address] 12/15/2014 14:59:12 12/15/2014 16:09:40 Shoulder pain 58133660 Knee pain 29534117 [id number] [facility] [address] [place] [address] 01/24/2015 14:59:28 01/24/2015 15:23:51 Shoulder pain 87428992 Spasm of back muscles 394758474 Knee pain 47917304 [id number] [facility] [address] [place] [address] 02/27/2015 14:18:47 03/09/2015 12:06:19 Knee pain 68885055 right Shoulder pain 30098644 r ight Spasm of back muscles 030796265 Chronic pain 75282436 Essential hypertension 14677139 Borderline personality disorder [id number] Mary Pinon LPN [facility] [address] [place] [address] 04/17/2015 15:45:43 04/23/2015 14:02:32 Unstable knee 312642838 right with buckling and pain s/p surgery 3 yrs ago Chronic pain 28911727 Plantar fasciitis 326034253 Disorder of skin 40117254 Hyperlipidemia 46522306 [id number] [facility] ([facility] 122) [address] [facility] [place] [address] 04/19/2015 16:11:41 04/20/2015 15:57:17 Screening mammography 49431176 Gynecologi c examination 00916602 [id number] Kylie Verduzco en [facility] ([facility] 122) [address] [facility] [place] [address] 08/28/2015 11:24:49 08/28/2015 14:09:42 83932623 Z33.1 Gynecologi c examination 66219408 Z01.071 [id number] KOREY SAM NP [facility] [address] [place] [address] 10/01/2017 17:20:12 10/02/2017 15:08:26 Pain in left knee 5238430984 20690 M25.562 Low back pain 927662928 M54.5 Obesity 043354482 E66.8 Needs infl uenza immunization 371039124 Z23 [id number] Sachin Engel MD [facility] [address] [place] [address] 11/02/2017 13:33:38 11/02/2017 16:02:09 Internal derangement of left knee 5973711707 27398 M23.322 Chondromal acia of left patella 9539225894 54813 M22.42 [id number] KOREY SAM NP [facility] [address] [place] [address] 11/03/2017 15:50:47 11/04/2017 12:54:55 Knee pain 18046466 M25.561 M25.005 [id number] KOREY SAM NP [facility] [address] [place] [address] 11/19/2017 16:43:03 11/23/2017 16:13:46 Obesity 076428420 E66.8 [id number] Maxx Bustamante [facility] [address] [place] [address] 12/10/2017 10:19:42 12/10/2017 14:35:44 Unstable knee 200662874 M25.369 Tear of la teral meniscus of knee 456919678 S83.262D Chondromal acia of left patella 2403209715 45736 M22.42 f/u after PT, possible MPFL strain, no patella dislocatio n [id number] Ping Henriquez APN, USABILITY SPECIALIST-C [facility] [address] [place] [address] 02/21/2019 11:16:23 02/22/2019 11:43:29 Essential hypertension 89084094 I10 used to be on propranolo l 20 mg bid which had her htn under control, will restart Spasm of back muscles 20 6464657 M62.830 refill muscle relaxer for prn use; also dwp to increase stretching exercises- yoga or water Obesity 824851113 E66.9 advised low fat, low cholestero l, low carb diet, regular exercise and weight reduction. 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 Bipolar disorder 1492145 4 F31.9 dwp to cont with plan at [facility] Bilateral knee pain 1187 917116 9434534 M25.561 M25.562 increase in pain and numbness below knees; dwp referral to new ortho, cont ibu prn [id number] [facility] [address] [place] [address] 08/29/2019 15:51:34 08/30/2019 13:06:48 Essential hypertension 08952090 I10 - b/p in office today- Doing well on current treatment. - Continue medication as prescribed and diet/exerc ise as previously discussed. - Take occasional BP s, call if consistent ly >140/90. - Discussed reasons for sooner f/u than 6 months. - Patient verbalizes understand ing. Hyperlipidemia 84613510 E78.5 - Educated on risks factors, and healthy lifestyle. - Handout provided on lifestyle modificati ons .- RTC in 4 months Thoracic back pain 00180 8004 M54.6 - Avoid heavy lifting and over-exert ion. - Avoid bed-rest do some gentle stretching and continue with normal activities . - Use ice to relieve pain, 15 minutes every 2 4 hours. - Use heat to relax muscles, 15 minutes every 2 4 hours. - Sleep on a firm surface and avoid lying on the sofa. Spasm of back muscles 20 2704151 M62.830 - Avoid heavy lifting and over-exert ion. - Take medication as directed. - Begin Ice massage in affected area as instructed for 15-25 minutes at a time, may repeat every 2 hours - Apply warm moist heat to relax muscles after each ice massage as directed. - Do some gentle stretching and continue with normal activities - Sleep on a firm surface and avoid lying on the sofa. Administra tion of influenza vaccine 76036716 Z23 - recommende d annual influenza vaccinatio n [id number] [facility] [address] [place] [address] 12/29/2019 11:58:26 12/30/2019 11:06:05 Bilateral knee pain 1656197820 6741921 M25.561 M25.562 - Dr. King following and managing patients care. - Patient stated she has bilateral meniscus tears and will eventually need surgery, stated she should be in PT however she hasn't been able to go because of transporta tion issues. Essential hypertension 21137360 I10 - b/p in office today 128/92- Doing well on current treatment. - Continue medication as prescribed and diet/exerc ise as previously discussed. - Take occasional BP s, call if consistent ly >140/90. - Discussed reasons for sooner f/u than 5 months. - Patient verbalizes understand ing. [id number] SANDRA CALLE NP [facility] [address] [place] [address] 05/29/2020 10:33:12 05/30/2020 07:26:06 Essential hypertension 63751176 I10 - Continue medication as prescribed and diet/exerc ise as previously discussed. - Take occasional BP s, call if consistent ly >140/90. - Discussed reasons for sooner f/u than 1 month. - Patient verbalizes understand ing. Bronchitis 11042074 J40 - R/O COVID, pt provided number for covid testing and screeningE xplained to pt that this is most likely a viral illness that will not respond to antibiotic therapy. Reviewed antibiotic resistance and reasons that antibiotic would be ordered. Encouraged pt to increase water intake, use a humidifier /vaporizer , or homeopathi c remedies such as warm tea or honey. Will order ProAir and tessalon. Discussed how to take medication s as well as possible side effects. Pt to f/u if symptoms worsen or do not improve. [id number] SANDRA CALLE NP [facility] [address] [place] [address] 01/08/2021 09:36:24 01/09/2021 19:11:38 Essential hypertension 64901703 I10 - b/p in office today 142/100- Continue medication as prescribed and diet/exerc ise as previously discussed. - Take occasional BP s, call if consistent ly >140/90. - Patient verbalizes understand ing. - RTC in 1 month Chronic low back pain 27 1685190 M54.5 - Apply heat to low back 10-15 minutes 3 times a day. - No heavy lifting over 10 LBS. - Stretching exercises per handout twice daily. ( take muscle relaxer/pa in med- 15 min prior) - Avoid bending or twisting at the waist; keep hips and shoulders aligned at all times.- Avoid sitting if possible, unless it feels better than standing. - Do not do anything that makes your symptoms worse. - RTC for worsening symptoms Knee pain 69674574 M25.5 69 - Educated on RICE method and OTC treatments . - Patient to RTC if condition worsens or does not improve. - Will call results of x-ray to patient. Hyperlipidemia 14605336 E78.5 - Educated on risks factors, and healthy lifestyle. [id number] SANDRA CALLE NP [facility] [address] [place] [address] 02/27/2021 08:40:39 02/28/2021 15:50:28 Bilateral knee pain 1243170838 2067850 M25.561 M25.562 - Dr. Sam following and managing patients care Essential hypertension 78241794 I10 - b/p in office today 140/86, Patient stated she had not taken medication this morning - Continue medication as prescribed and diet/exerc ise as previously discussed. - Take occasional BP s, call if consistent ly >140/90. - Patient verbalizes understand ing. Positive s creening for depression on PHQ-9 (Patient Health Questionnaire 9) 4876668592 63164 Z13.89 - PHQ-9 screening positive for severe depression . Patient states she has not taken psyche medication in years. - Dwp importance of seeing specialist and getting back on medication s Bipolar disorder 4058203 4 F31.9 - Patient states she is currently seeing [facility] counselor at [facility] - Dwp importance of see provider and getting back on her meds - Patient agreed to set appointmen t [id number] SANDRA CALLE NP [facility] [address] [place] [address] 07/16/2021 16:02:18 07/17/2021 09:52:43 Essential hypertension 63455467 I10 - b/p in office today 157/98, Patient stated she had not taken medication this morning - Continue medication as prescribed and diet/exerc ise as previously discussed. - Take occasional BP s, call if consistent ly >140/90.- Will RTC in 2 weeks to have b/p evaluate - Patient verbalizes understand ing. Noncomplia nce with medication regimen 979774161 Z91.14 - patient missing doses of b/p medication , DWP importance of taking medication as prescribed to decrease risk of stroke and heart attack.- patient verbalized understand ing [id number] SANDRA CALLE NP [facility] [address] [facility] [address] [place] [address] 07/30/2021 15:54:16 07/31/2021 12:44:41 Essential hypertension 68579207 I10 - b/p in office today 157/98, Patient stated she had not taken medication this morning - Continue medication as prescribed and diet/exerc ise as previously discussed. - Take occasional BP s, call if consistent ly >140/90.- Will RTC in 3 weeks to have b/p evaluate - Patient verbalizes understand ing. [id number] BRENDA LIU [address] IM [address] [facility] [place] [address] 08/20/2021 16:16:33 08/23/2021 00:13:57 Essential hypertension 09802607 I10 - b/p in office today 126/88 - Continue medication as prescribed and diet/exerc ise as previously discussed. - Take occasional BP s, call if consistent ly >140/90.- Will RTC in 3 weeks to have b/p evaluate - Patient verbalizes understand ing. Supraventr icular tachycardia 0975528 I47.1 - HR in office today 103- Dwp importance of following up with Dr. Figueroa (cardiolog ist) [id number] BRENDA LIU [address] IM [address] [facility] [place] [address] 09/10/2021 16:51:26 09/13/2021 14:33:26 Essential hypertension 03011653 I10 - b/p in office today 126/88 - Continue medication as prescribed and diet/exerc ise as previously discussed. - Take occasional BP s, call if consistent ly >140/90.- Will RTC in 3 weeks to have b/p evaluate - Patient verbalizes understand ing. Tachycardia 9259331 R00. 0 Patient states he her rate has been in the 115s- 120s associated dizziness, H/o svt states she is not able to get [facility] [id number] BRENDA LIU [address] IM [address] [facility] [place] [address] 10/15/2021 08:14:40 10/16/2021 22:49:46 Bronchitis 97964492 J40 - Patient encourage to go get COVID test to r/o.- Explained to pt that this is most likely a viral illness that will not respond to antibiotic therapy.- RTC for new or worsening symptoms Encouraged pt to increase water intake, use a humidifier /vaporizer , or homeopathi c remedies such as warm tea or honey.Will order inhaler and prednisone . Discussed how to take medication s as well as possible side effects. Pt to f/u if symptoms worsen or do not improve. [id number] SANDRA CALLE NP [facility] [address] [facility] [address] [place] [address] 12/26/2021 16:15:43 01/03/2022 12:25:35 Administration of influenza vaccine 90354769 Z23 - recommende d annual influenza vaccinatio n Essential hypertension 06657352 I10 - b/p in office today 110/74 - Continue medication as prescribed and diet/exerc ise as previously discussed. - Take occasional BP s, call if consistent ly >140/90.- Will RTC in 3 weeks to have b/p evaluate - Patient verbalizes understand ing. Supraventr icular tachycardia 7963151 I47.1 - HR in office today 103- Dwp importance of following up with Dr. Figueroa (cardiolog ist)- Patient states she has appointmen t with cardiologi 01/16 Obstructiv e sleep apnea syndrome 56399793 G47.33 Patient states she had sleep study last year, and never heard anything anything else concerning CPAP machine [id number] SANDRA CALLE NP [facility] [address] [place] [address] 01/20/2022 16:41:59 01/21/2022 12:49:39 Pre-surgery evaluation 311981655 Z01.818 - Right Total Knee Arthroplas ty scheduled for tomorrow 01/21/2022 - medically evaluated and to the best of my knowledge there are no medical contraindi cations for undergoing elective surgery. [id number] SANDRA CALLE NP [facility] [address] [place] [address] 03/03/2022 16:25:31 03/14/2022 11:46:23 Essential hypertension 15667396 I10 - b/p in office today 134/84 - Continue medication as prescribed and diet/exerc ise as previously discussed. - Take occasional BP s, call if consistent ly >140/90.- Will RTC in 6 months - Patient verbalizes understand ing. History of total knee arthroplasty 5859370684 105 Z96.651 - Status post right knee surgery 6 weeks ago,Dr. Harrison following and managing care reports. Per patient f/u appointmen t schedule with specialist on 03/21. Currently seeing physical therapist every week twice a week. [id number] SANDRA CALLE NP [place] [address] [place] [address] 05/26/2022 12:17:13 05/27/2022 12:54:08 Urinary incontinence 795431503 R32 - incontinen t of urine x 6 years that gotten progressiv isa worse, requesting rx for incontinen ce supplies Obesity 939370389 E66.9 [id number] SANDRA CALLE NP [facility] [address] [place] [address] 08/13/2022 08:30:10 08/14/2022 08:43:21 Body mass index 30+ - obesity 283344131 Z68.37 advised low fat, low cholestero l, low carb diet, regular exercise and weight reduction. Chronic back pain 920545 002 G89.29 Administra tion of influenza vaccine 39670366 Z23 - recommende d annual influenza vaccinatio n [id number] SANDRA CALLE NP [facility] [address] [place] [address] 12/03/2022 11:25:01 12/04/2022 13:29:23 Supraventricular tachycardia 1410308 I47.1 - Dr. Marie following and managing care. Patient encourage to schedule and keep appointmen t. Impingemen t syndrome of right shoulder region 0462494479 91126 M75.41 - Counseled on shoulder pain, testing, medication s and referral to PT. Alternate Ice/heat to area, f/u after PT if no improvemen t Hyperlipidemia 97686431 E78.5 - Educated on risks factors, and healthy lifestyle. Essential hypertension 73099349 I10 - b/p in office today 134/84 - Continue medication as prescribed and diet/exerc ise as previously discussed. - Take occasional BP s, call if consistent ly >140/90.- Will RTC in 6 months - Patient verbalizes understand ing. Renewal of prescription 336009304 Z76.0 [id number] Salvatore Aceves MD [facility] [address] [place] [address] 06/16/2023 14:46:40 06/17/2023 10:40:57 Essential hypertension 14482222 I10 - b/p in office today 138/88 - Continue medication as prescribed and diet/exerc ise as previously discussed. - Take occasional BP s, call if consistent ly >140/90.- Will RTC in 6 months - Patient verbalizes understand ing. Pre-surger y evaluation 791362325 Z01.818 - Left Total Knee Arthroplas ty scheduled for 07/07/2023 - I informed the patient that she must be cleared by her cardiologi st before I can clear her for left knee surgery. The patient expressed her understand ing, noting that she has a cardiology appointmen t on June 25, 2023.. Urinary incontinence 165 994569 R32 - incontinen t of urine x 6 years that gotten progressiv isa worse, requesting rx for incontinen ce supplies Obesity 329891961 E66.9 advised low fat, low cholestero l, low carb diet, regular exercise and weight reduction. [id number] SANDRA CALLE NP [facility] [address] [place] [address] 07/16/2023 14:30:13 07/20/2023 13:32:44 Hyperglycemia 54124192 R73.9 Obesity 226404710 E66.9 advised low fat, low cholestero l, low carb diet, regular exercise and weight reduction. [id number] SANDRA CALLE NP [place] [address] [place] [address] 11/05/2023 14:08:03 11/06/2023 15:38:20 Type 2 diabetes mellitus 37813671 E11.9 - newly diagnosed on 07/16- Educated on goal of blood sugars (A1C of 7% and fasting of 80-130) and informatio n below. Postprandi al BG of less than 180.- Encouraged weight loss and diet changes.- Monitor BP with goal of <130/80.- Eye exam yearly and dentist regularly. - Next A1C due in 3 months- RTC or call if blood sugars not controlled .- Check feet daily and notify PCP immediatel y of abnormalit y.- F/U in 3 months Respirator y tract congestion and cough 673578043 R05.9 COVID-19 202155732 U07.1 - Patient instructed to self quarantine for the next 5 days. Encourage to only leave house if medically necessary - Patient encourage to monitor symptoms and seek emergency medical care if she develops difficulty breathing, chest pain or pressure, or any concerning symptoms [id number] SANDRA CALLE NP [facility] [address] [place] [phone] 02/08/2024 15:27:11 02/08/2024 16:10:02 Essential hypertension 92177108 I10 - b/p in office today 119/79 - Continue medication as prescribed and diet/exerc ise as previously discussed. - Take occasional BP s, call if consistent ly >140/90.- Will RTC in 6 months - Patient verbalizes understand ing. Obstructiv e sleep apnea syndrome 74126969 G47.33 - Dr. Moncada following and managing Supraventr icular tachycardia 8996821 I47.10 Patient requesting new cardiology referral Type 2 luis betes mellitus 33161380 E11.9 Obesity 350843975 E66.9 advised low fat, low cholestero l, low carb diet, regular exercise and weight reduction. [id number] SANDRA CALLE NP [facility] [address] [place] [address] 06/14/2024 09:28:43 06/21/2024 08:30:43 Obesity 680145978 E66.9 advised low fat, low cholestero l, low carb diet, regular exercise and weight reduction. Essential hypertension 48677739 I10 - b/p in office today 15479, Patient states she has not taken any b/p medication today. - Continue medication as prescribed and diet/exerc ise as previously discussed. - Take occasional BP s, call if consistent ly >140/90.- Will RTC in 4 weeks - Patient verbalizes understand ing. Type 2 luis betes mellitus 22927131 E11.9 HbA1c is 6.6% ( 4). Currently on metformin 500 mg BID.Contin ue care with Dr. Erickson Hemorrhoids 36340963 K64 .9 Recommend over-the-c ounter topical treatments (e.g., hydrocorti sone creams, witch heriberto pads).Advi se increasing fiber intake, staying hydrated, and avoiding prolonged sitting or straining during bowel movements. If symptoms persist or worsen, consider referral to a specialist for further evaluation and possible procedural options. Screening for malignant neoplasm of colon 311770653 Z12.11 Vertigo 752087605 R42 Patient experienci ng vertigo with daily dizzy spells, possibly related to cardiovasc ular issues or blood pressure control. Follow up with a cardiologi .Control blood pressure. [id number] SANDRA CALLE SHOPFITTER [facility] [address] [place] [phone] 07/12/2024 09:43:22 07/27/2024 10:34:05 Essential hypertension 31365755 I10 - b/p in office today 113/78 - Continue medication as prescribed and diet/exerc ise as previously discussed. - Take occasional BP s, call if consistent ly >140/90. - Patient verbalizes understand ing. Type 2 luis betes mellitus 40113364 E11.9 HbA1c is 6.6% ( 4). Currently on metformin 500 mg BID.Contin ue care with Dr. Erickson Administra tion of influenza vaccine 24162584 Z23 - recommende d annual influenza vaccinatio n [id number] SANDRA MCNULTYANI [facility] [facility] [address] [id number] 01/03/2025 11:52:18 01/04/2025 12:49:29 Type 2 diabetes mellitus 96531690 E11.9 Dr. Castillo follow and managing care. Last seen 12/13/24 Essential hypertension [id number] I10 - b/p in office today 107/78 - Continue medication as prescribed and diet/exerc ise as previously discussed. - Take occasional BP s, call if consistent ly >140/90. - Patient verbalizes understand ing. Supraventr icular tachycardia [id number] I47.10 Dr. Morley following and managing Screening for malignant neoplasm of colon [id number] Z12.11 Administra tion of pneumococcal vaccine [id number] Z23 - recommende d annual pneumococc al vaccinatio n Health Concerns Section Related Observation LastModified by Organization Detai ls LastModified Time None Recorded Concern Status LastModified by Organization Details LastModified Time None Recorded Advance Directives Directive None Recorded Payers Encounter Date Sequence Insurance Name Policy Number Policy Cabezas Covered Member ID Cabezas Member ID Guarantor Name 11/05/2023 1 [place] [facility] Mia Mcintosh [id number] Mia Flannery Kovar 02/08/2024 1 [place] [facility] Mia Mcintosh [id number] Mia Flannery Kovar 06/14/2024 1 [place] [facility] Mia Mcintosh [id number] Mia Flannery Kovar 07/12/2024 1 [place] [facility] Mia Mcintosh [id number] Flannery Kovar 01/03/2025 1 [place] [facility] Mia Mcintosh [id number] Mia Mcintosh Notes Date Note Type Note Provider Name and Address Organization Details Recorded Time text/html COVID-19 Symptoms February 2020Reported bypatient.COVID-19 Signs and Symptomscough worsening; fever resolved; muscle pain same;headache worsening; sore throat improving; fatigue same Quality:productive cough Severity:moderate Onset/Timing:date of symptoms onset: (11/03/23) Associated Symptoms:yellow-green, thick sputum;fatigue;body aches Prior Labs and ImagingCOVID-19 nasopharyngeal swabDiabetes F/UReported bypatient.Labs:last A1C result: 7.5 (07/16/2023) Context:normal range of home blood sugars (in the low 100s); not missing doses of medications; no side effects from medications Associated Symptoms:no numbness of feet; no calluses on feetUpper Respiratory SymptomsReported bypatient.Context:no sick contacts; no foreign travel; non-smoker Associated Symptoms:no sputum production; no shortness of breath; no wheezing; no change in number of pillows needed to sleep at night; no sweats; no fever; no significant weight gain; no significant weight loss; no morning cough; no sore throat; no vomiting; no diarrhea; no rash; no nausea Ms. Mcintosh presented in office today c/o cough, congestion, body aches, head ache and yellowish mucus x 3 days. SANDRA CALLE NP Attn: Accounting,[address], [place], [address], [facility] 11/05/2023 16:01:05 4 text/html Ms. Mcintosh presented in office today for f/u appointment. Patient requests new frame operator referral, indicating that she wants to see a different frame operator. SANDRA CALLE NP Attn: Accounting,[address] [facility] [address], [place], [address], [facility] 02/16/2024 13:06:15 4 text/html Diabetes F/UReported bypatient.Labs:last A1C result: 7.2 (11/05/2023) Context:not missing doses of medications; no side effects from medicationsHypertension F/UReported bypatient.Associated Symptoms:no dizziness; no lightheadedness; no chest pain; no shortness of breath; no palpitations; no edema Medications:taking medications as directed; no side effects from medication SANDRA CALLE NP Attn: Accounting,[address] [facility], [place], [address], [facility] 02/16/2024 13:06:15 4 text/html Diabetes F/UReported bypatient.Labs:last A1C result: 6.6 (05/2024) Context:not missing doses of medications; no side effects from medications Associated Symptoms:dizzinessHypertens ion F/UReported bypatient.Associated Symptoms:no chest pain; no shortness of breath; no palpitations; no edema;dizziness;lightheaded ness Medications:taking medications as directed; no side effects from medication Ms. Mcintosh presented for a follow-up appointment today. She reports experiencing daily dizzy spells over the past three months, describing the sensation as feeling like she is going to fall. She notes that the frequency and severity of these episodes have worsened over time. SANDRA CALLE NP Attn: Accounting,[address], [place], [address], [facility] 06/19/2024 17:29:33 4 text/html Hypertension F/UReported bypatient.Associated Symptoms:no dizziness; no lightheadedness; no chest pain; no shortness of breath; no palpitations; no edema Medications:taking medications as directed; no side effects from medication Ms. Mcintosh presented in office today for follow up appointment. SANDRA CALLE NP Attn: Accounting,[address] [place], [address], [facility] 07/25/2024 17:00:05 5 text/html Diabetes F/UReported bypatient.Labs:last A1C result: 6.6 (05/2024)Hypertension F/UReported bypatient.Associated Symptoms:no dizziness; no chest pain; no shortness of breath; no palpitations; no edema;lightheadedness Medications:taking medications as directed Ms. Mcintosh is here for a follow-up, reporting no new symptoms or concerns. No changes in health since the last visit. SANDRA CALLE NP Attn: Accounting,[address] [place], [address], [facility] 01/03/2025 12:47:26 OBGyn Episode Ob Episode Information Episode Created Date Number of Fetuses Patient Bloodtype Patient rh Status Prepregnancy Weight lbs Domestic Partner Domestic Partner Phone Father Name Engine Testing Supervisor Status 08/28/20 15 1 CLOSED Fetus Data First Name Last Name Admitted to NICU Weight (g) Sex Living Outcome Pediatric Complications Fetus ID Race Codes Race Delivery Type [id number] Flynn Calculation Initial Flynn Date Initial Exam Date Initial Exam Provider Initial Ultrasound Date Last Menstrual Period Date Ultra Sound Weeks Gestation 0 Eighteen To Twenty Week Flynn Update Ultra Sound Date Fundal Height At Umbil Quickening Date Ultra Sound Latest Weeks Gestation Final Flynn Confirmed By Final Flynn Confirmed Date Final Flynn Date Ultra Sound Latest Days Gestation 0 0 Menstrual History Last Menstrual Date Menses Monthly On Bcp Conception Prior Menses Frequency Hcg Plus Date Menarche Onset Age Delivery Information Delivery Date Delivery Type Labor Anesthesia Weeks Gestation Incision Type Labor Labor Length Hrs Delivered By Post Complications Tubal Sterilization Discharge Date Comments 1 Discharge Information Feeding Method Contraceptive Method Maternal HG B and HCT Levels Ob Episode Information Episode Created Date Number of Fetuses Patient Bloodtype Patient rh Status Prepregnancy Weight lbs Domestic Partner Domestic Partner Phone Father Name Engine Testing Supervisor Status 08/28/20 15 1 CLOSED Fetus Data First Name Last Name Admitted to NICU Weight (g) Sex Living Outcome Pediatric Complications Fetus ID Race Codes Race Delivery Type [id number] Flynn Calculation Initial Flynn Date Initial Exam Date Initial Exam Provider Initial Ultrasound Date Last Menstrual Period Date Ultra Sound Weeks Gestation 0 Eighteen To Twenty Week Flynn Update Ultra Sound Date Fundal Height At Umbil Quickening Date Ultra Sound Latest Weeks Gestation Final Flynn Confirmed By Final Flynn Confirmed Date Final Flynn Date Ultra Sound Latest Days Gestation 0 0 Menstrual History Last Menstrual Date Menses Monthly On Bcp Conception Prior Menses Frequency Hcg Plus Date Menarche Onset Age Delivery Information Delivery Date Delivery Type Labor Anesthesia Weeks Gestation Incision Type Labor Labor Length Hrs Delivered By Post Complications Tubal Sterilization Discharge Date Comments 7 Discharge Information Feeding Method Contraceptive Method Maternal HG B and HCT Levels Ob Episode Information Episode Created Date Number of Fetuses Patient Bloodtype Patient rh Status Prepregnancy Weight lbs Domestic Partner Domestic Partner Phone Father Name Engine Testing Supervisor Status 08/28/20 15 1 A Positive Jeremia h Kovar CLOSED Fetus Data First Name Last Name Admitted to NICU Weight (g) Sex Living Outcome Pediatric Complications Fetus ID Race Codes Race Delivery Type trans to Soniya brown [id number] Flynn Calculation Initial Flynn Date Initial Exam Date Initial Exam Provider Initial Ultrasound Date Last Menstrual Period Date Ultra Sound Weeks Gestation 04/14/2016 08/28/2015 mpass 09/04/2015 07/07/2015 8 Eighteen To Twenty Week Flynn Update Ultra Sound Date Fundal Height At Umbil Quickening Date Ultra Sound Latest Weeks Gestation Final Flynn Confirmed By Final Flynn Confirmed Date Final Flynn Date Ultra Sound Latest Days Gestation 0 radha 09/11/2015 04/14/20 16 0 Pre-cale Flowsheet Flowsheet Date 08/28/2015 Snow Score Blood Edema Fundus Height Fundus Units Glucose Ketones Leukocytes Nitrite Labor Signs Protein Cervic Dilation Cervic Effacement Cervic Station neg none none negative neg 0cm 0% - 4 Type Weight in lbs Pre/Post Dialysis Refused [id number] BP Diastolic BP Location Tested BP Systolic BP Type 78 122 sitting Fetus Heart Rate Present Fetus Movement A No Comments Initial labs drawn today. Ga ve order for initial ultrasound. Menstrual History Last Menstrual Date Menses Monthly On Bcp Conception Prior Menses Frequency Hcg Plus Date Menarche Onset Age 0907/07/2015 true false 28 14 Genetic Screening And Infection History Question Response Note Patient's Age Will Be 35 Yea rs Or Older At Estimated Date of Delivery true Thalassemia (Sri Lankan, Slovak, Mediterranean, Or Background): MCV < 80 false Neural Tube Defect (Meningom yelocele, Spina Bifida, Or Anencephaly) false Congenital Heart Defect false Down Syndrome false Dilan-Sachs (eg, Spiritism, Cajun, Greek-[place]) f alse Elaine Disease false Sickle Cell Disease Or Trait () false Hemophilia Or Other Blood Disorders false Muscular Dystrophy false Cystic Fibrosis false Windsor's Chorea false Mental Retardation/Autism true patien t's nephew Other Inherited Genetic Or Chromosomal Disorder false Maternal Metabolic Disorder (eg, Type 1 Diabetes , PKU) false Patient Or Baby's Father Had A Child With Defects Not Listed Above false Recurrent Loss, Or A Stillbirth false Medications (including Suppl ements, Vitamins, Herbs, OTC Drugs), Illicit/Recreational Drugs, Alcohol true PNV's, 1 t razadone Any Other Genetic History false Live With Someone With TB Or Exposed To TB false Patient Or Partner Has History Of Genital Herpes false Rash Or Viral Illness Since Last Menstrual Perio d false History Of STD, Gonorrhea, Chlamydia, HPV, Syphi lis false Delivery Information Delivery Date Delivery Type Labor Anesthesia Weeks Gestation Incision Type Labor Labor Length Hrs Delivered By Post Complications Tubal Sterilization Discharge Date Comments 6 20.1 trans to [place] to [place] Discharge Information Feeding Method Contraceptive Method Maternal HG B and HCT Levels
[2025-02-17 14:06] LABS: Basophils Absolute Auto 0.1 K/mm3 (0.0-0.1); Basophils Percent Auto 0.6 % (0.2-1.2); Eosinophils Absolute Auto 0.1 K/mm3 (0-0.3); Eosinophils Percent Auto 1.3 % (0-4.4); Hemoglobin 14.7 g/dL (12.0-15.0); Immature Granulocyte Absolute 0.03 K/mm3 (0.00-0.031); Immature Granulocyte Percent A 0.4 % (0-0.5); Lymphocytes Percent Auto 24.9 % (18.3-44.2); Mean Corpuscular HGB Conc 32.7 g/dl (32-36); Mean Corpuscular Hemoglobin 30.1 pg (26-34); Mean Corpuscular Volume 92.2 fl (80-100); Mean Platelet Volume 11.6 fl (7.4-10.4); Monocytes Absolute Auto 0.6 K/mm3 (0.1-0.6); Monocytes Percent Auto 6.5 % (2.6-8.5); Neutrophils Absolute Auto 5.6 K/mm3 (1.3-6.7); Neutrophils Percent Auto 66.3 % (45.5-73.1); Platelet Count Result 216 k/mm3 (150-375); Red Blood Count 4.88 M/mm3 (4.2-5.4); Red Cell Distribution Width 13.1 % (11.5-14.5); White Blood Count 8.4 K/mm3 (4.5-10.0)
[2025-02-17 14:19] LABS: Alanine Aminotransferase 21 U/L (6-35); Albumin Level 4.8 g/dL (3.5-5.1); Alkaline Phosphatase 100 U/L (38-126); Anion Gap 12 mmol/L (4-12); Aspartate Amino Transferase 23 U/L (14-36); Blood Urea Nitrogen 12 mg/dL (7-17); Calcium 9.3 mg/dL (8.4-10.2); Carbon Dioxide 23 mmol/L (22-30); Chloride 103 mmol/L (98-107); Estimated CRCL calculation 83 ml/min; Estimated Glomerular Filt Rate > 60; Glucose 98 mg/dL (65-110); Lipase 97 U/L (23-300); Potassium 3.5 mmol/L (3.4-5.0); Sodium 138 mmol/L (137-145)
[2025-02-17 14:26] LABS: INR 0.9; Prothrombin Time 12.8 Seconds (11.1-14.7)
[2025-02-17 14:27] LABS: Partial Thromboplastin Time 27.2 Seconds (22.3-36.8)
[2025-02-17 14:28] VITALS: BP 151/97; PULSE 87; RESP 14; TEMP 36.6; O2SAT 99
[2025-02-17 14:31] LABS: Troponin I < 0.012 ng/mL (0.000-0.034)
--- OUTSIDE RECORDS SUMMARY | 2025-02-17 14:59 | XMS_ITS | Clinical Summary ---
Author Organization [facility] Address [address] [address] Phone Care Team Providers Care Stitcher Set Up Operator Automatic Name Role Phone Sandra Breen NP Primary Care Provider + [phone] Noelle Gastelum MD Unavailable + [phone] [facility] [employer] ARCHITECT Unavailable [phone] Paola Kim PT Unavailable Unavaila Venus Tobias Unavailable [phone] Allergies Active Allergy Reactions Criticality Noted Date [...] Type Department Care Team Description 01/04/2025 Telephone [facility] Gastroenterology at [address] [address] JarrettBenjaminOlivia 12/13/2024 2:30 PM ABATTOIR MANAGER Telemedicine [facility] [address] [place] [address] Felisha Erickson MD Type 2 diabetes [...] on file Legal Sex Female 9:22 AM ABATTOIR MANAGER Gender Identity Female 02/01/2021 1:22 AM CDT [...] 86.2 kg (190 lb) 12/13/2024 2:23 PM ABATTOIR MANAGER Height 154.9 cm (5' 1 ) 12/13/2024 2:23 PM ABATTOIR MANAGER Body Mass Index 35.9 12/13/2024 2:23 PM ABATTOIR MANAGER Plan of Treatment Upcoming Encounters Date Type Department Care Team (Late st Contact Info) Description 08/10/2025 9:30 AM CDT Hospital Encounter [facility] [address] [place] [address] Alfreda Doe MD [address] [place] [address] 08/10/2025 9:30 AM CDT - 08/10/2025 10:00 AM CDT Surgery [facility] [address] [place] [address] Alfreda Doe MD [address] [place] [address] [address] [place] [address] COLONOSCOPY Scheduled Procedures Name Priority Associated Diagnoses [...] history exists Medical Devices Implanted Type Area Ocular Care Technologist Device Identifier Shelf Expiration Date Model / Serial / Lot [employer]uy [employer] [id number] Attune 6mm Cruciate Retaining Rotate Platform Knee 4 Insert - [id number] Implanted:Qty: 1 on 01/21/2022 by Song Harrison MD at [facility] Right: Knee [employer] 05/25/2026 [id number] / / [id number] [employer] [id number] Attune Cementless Rotate Platform Knee 3 Baseplate Tibial - [id number] Implanted:Qty: 1 on 01/21/2022 by Song Harrison MD at [facility] Right: Knee [employer] 07/25/2029 [id number] / / [id number] [employer] [id number] Attune Cruciate Retain Cementless Knee Right 4 Narrow Component - [id number] Implanted:Qty: 1 on 01/21/2022 by Song Harrison MD at [facility] Right: Knee [employer] 10/25/2030 [id number] / / [id number] [employer] Attune Fb Tib Base Sz 3 Por [id number] - [id number] Implanted:Qty: 1 on 07/28/2023 by Song Harrison MD at [facility] Left: Knee [employer] [id number] 11/25/2032 [id number] / / [id number] [employer] Attune Cruciate Retain Cementless Knee Left 4 Narrow Component [id number] - [id number] Implanted:Qty: 1 on 07/28/2023 by Song Harrison MD at [facility] Left: Knee [employer] [id number] 01/24/2032 [id number] / / [id number] [employer] Insert Attune Left Medial Stabilized Size 4 6mm [id number] - [id number] Implanted:Qty: 1 on 07/28/2023 by Song Harrison MD at [facility] Left: Knee [employer] [id number] 03/25/2031 [id number] / / [id number] Procedures Procedure Name Priority Date/Time Associated Diagnosis Comments POCT GLUCOSE Routine 12/13/2024 2:25 PM ABATTOIR MANAGER Type 2 diabetes mellitus with hyperglycemia, without long-term current use of insulin (HCC) POCT HEMOGLOBIN A1C Routine 06/08/2024 3 :57 PM CDT Type 2 diabetes mellitus with hyperglycemia, without long-term current use of insulin (HCC) EGFR Routine 03/15/2024 3:49 PM CDT from Last 3 Months or Most Recently Relevant to Health Maintenance Results * POCT glucose (12/13/2024 2:25 PM ABATTOIR MANAGER) Glucose Blood, POC 132 mg/dL Comment:None Blood 12/13/2024 2:25 PM ABATTOIR MANAGER us Felisha Erickson MD POINT OF CARE TEST ORDERABLES Fi nal Result * (ABNORMAL) POCT hemoglobin A1c (06/08/2024 3:57 PM CDT) Hemoglobin A1C, POC 6.6 4.0 - 5.6 % Comment:None Capillary blood 06/08/2024 3 :57 PM CDT us Felisha Erickson MD POINT OF CARE TEST ORDERABLES Fi nal Result * eGFR (03/15/2024 3:49 PM CDT) Pathologist [facility] eGFR 86 >=60 mL/min/1. 73 m2 Comment: [...] LAB BLOOD ORDERABLES Final Resu lt JEFFY [address] [facility] Department [place] [address] from Last 3 Months or Most Recently Relevant to Health Maintenance Insurance IDPA Member Subscriber Plan / Payer (Ef fective 2021-Present) Name:Mia Mcintosh Relation to Subscriber:Self Name:Mia Mcintosh Payer ID:[id number] Group ID:Not on file Type:[place]ICAID [place] Address: [address] IDPA Member Subscriber Plan / Payer (Ef fective 2022-Present) Name:Mia Mcintosh Relation to Subscriber:Self Name:Mia Mcintosh Payer ID:[id number] Group ID:Not on file Type:MEDICAID [place] Address: [address] [id number] IDPA Care Teams Stitcher Set Up Operator Automatic Relationship Specialty Start Date End Date Sandra Breen NP [address] [place] [address] PCP - General Family Medicine 02/04/21 Noelle Gastelum MD [address] [place] [address] Hand Compositor Cardiology 10/04/21 Kaiser Sam NP [address] [place] [address] [place] [address] Nurse Practitioner Nurse Practitioner 01/21/22 Paola Kim, PT Physical Therapist Physical Therapy 02/13/22 Venus Jurado PA [address] [place] [address] [place] [address] Physician Internet Manager Orthopedic Surgery 07/28/23
--- OUTSIDE RECORDS SUMMARY | 2025-02-17 14:59 | XMS_ITS | CONTINUITY OF CARE DOCUMENT ---
Author Name ninoska xiao Address Unknown Organization [facility] Address [address] [facility] [address] [place] [address] Phone [phone] Care Team Providers Care Videogame Designer Name Role Phone Norm Morley MD Unavailable ALVA PEDIATRIC SOCIAL WORKER, PAO A Unavailable ALVA PEDIATRIC SOCIAL WORKER, PAO A Unavailable [phone] PROBLEMS Condition Status Date Provider Notes Essential hypertension active Norm Morley MD Hyperlipidemia active Norm Morley MD [...] In-person encounter Office Visit Norm Morley MD [facility] Shortness of breath 0 - 1 In-person encounter Office Visit Norm Morley MD [facility] Essential hypertensionHyperlipidemiaDiabetes mellitus, type 2OSAAnxietyHx of [...] Gruenenfelder oxygen saturation, oximetry 98 % Donna Goodmannebauitstaelder respiratory rate E&M 12 /min Donna Car aletaluisnfelder pulse rate 78 /min Donna Marine lder weight E&M 209 [lb_av] Donna Islas lder height E&M 62 [in_i] Donna Rochasuniljerichochari er ALLERGIES Allergy Name Onset Date Reaction Criticality Status VICODEN Low Criticality active RESULTS Date Observation Value Provider Reference Range Interpretation Location 1 Estimated Glomerular Filtration Rate (calc) 86 mL/min/{1 .73_m2} [facility] >=60 Normal C, [address] [address] 1 NT-pro BNP 236 [employer] <=300 Normal , [address] [address] 1 calcium, serum 9.0 mg/dL [facility] 8.5-10.3 Normal , [place] [address] 1 blood glucose, random 102 mg/dL [facility] 70-199 Normal , [place] [address] [address] 1 creatine, serum 0.83 mg/dL [employer] 0.60-1.10 Normal , [place] [address] 1 urea nitrogen, blood 11 mg/dL [facility] 6-25 Normal C, [place] [address] [address] 1 anion gap, serum 10 mmol/L [facility] 2-15 Normal , [place] [address] 1 carbon dioxide, venous blood 26 mmol/L [employer] 22-32 Normal , [place] [address] 1 chloride, serum 104 mmol/L [facility] 97-110 Normal , [address] [address] 1 potassium, serum 4.1 MMOL/L [facility] 3.3-4.9 Normal , [place] [address] 1 sodium, serum 140 mmol/L [facility] 135-145 Normal [place] [address] 1 thyroid stimulating hormone, serum 1.46 MCIUNIT/M L [employer] 0.30-4.20 Normal , [place] [address] 1 Absolute Basophils 0.1 K/CUMM [employer] 0.0-0.1 Normal , [place] [address] 1 Absolute Monocytes 0.5 K/CUMM [employer] 0.2-0.8 Normal [place] [address] 1 Absolute Lymphocytes 2.5 K/CUMM [employer] 0.8-3.3 Normal , [place] [address] 1 Absolute Neutrophils 4.0 K/CUMM [employer] 1.5-6.5 Normal [place] [address] 1 nucleated red blood cells as percent [...] Payer name Policy type / Coverage type [place] red green party ID HEALTHCARE AND FAMILY SERVICES Medicaid 1 [id number] ADVANCE DIRECTIVES Name Date DISCUSSED - NO [...] Take 1 tablet by mouth every evening Gina Yatesluri BRENDA Cardiology:BP 140/90 H er updated medication list for this problem includes: Metoprolol Succinate 50 Mg Tablet Extended Release 24 Hr (Metoprolol succinate) ..... Take 1 tablet by mouth once a day Lisinopril 10 Mg Tablet (Lisinopril) ..... Take 1 tablet by mouth every day Gina Yatesluri FIBERGLASS BOAT ASSEMBLY SUPERVISOR Date Name CBC (INCLUDES DIFF/P LT) TSH, [...]
--- OUTSIDE RECORDS SUMMARY | 2025-02-17 14:59 | XMS_ITS | Referral Summary ---
Author Organization [facility] Address [address] [place] [address] Phone Care Team Providers Care Nuclear Process Engineer Name Role Phone Sandra Breen NP Primary Care Provider + [phone] Noelle Gastelum MD Unavailable + [phone] Kaiser Sam NP Unavailable [phone] Paola Kim PT Unavailable Unavaila Venus Tobias Unavailable [phone] Encounters Date Type Department Care Team Description 01/04/2025 Telephone [facility] Gastroenterology at [address] [place] [address] Olivia Farias 12/13/2024 2:30 PM AGRICULTURAL AGENT Telemedicine [facility] [id number] [place] [address] [address], [place] [address] Felisha Erickson MD Type 2 [...] interested in CGM. She was provided with [employer] Arun 2 samples, and she downloaded application [...] on file Legal Sex Female 9:22 AM AGRICULTURAL AGENT Gender Identity Female 02/01/2021 1:22 AM CDT [...] 86.2 kg (190 lb) 12/13/2024 2:23 PM AGRICULTURAL AGENT Height 154.9 cm (5' 1 ) 12/13/2024 2:23 PM AGRICULTURAL AGENT Body Mass Index 35.9 12/13/2024 2:23 PM AGRICULTURAL AGENT Plan of Treatment Upcoming Encounters Date Type Department Care Team (Late st Contact Info) Description 08/10/2025 9:30 AM CDT Hospital Encounter [address] [address]Alfreda Fleming MD [address] [place] [address] [place] [address] 08/10/2025 9:30 AM CDT - 08/10/2025 10:00 AM CDT Surgery [address] [address]Alfreda Fleming MD [address] [place] [address] [address] [address] COLONOSCOPY Scheduled Procedures Name Priority Associated Diagnoses Date/Ti me COLONOSCOPY Encounter for screening for malignant neoplasm of colon 08/10/2025 9:30 AM CDT Medical Devices Implanted Type Area Precision Instrument Maker Device Identifier Shelf Expiration Date Model / Serial / Lot [employer] [id number] Attune 6mm Cruciate Retaining Rotate Platform Knee 4 Insert - [id number] Implanted:Qty: 1 on 01/21/2022 by Song Harrison MD at [facility] Right: Knee [employer] 05/25/2026 [id number] / / [id number] [employer] [id number] Attune Cementless Rotate Platform Knee 3 Baseplate Tibial - [id number] Implanted:Qty: 1 on 01/21/2022 by Song Harrison MD at [facility] Right: Knee [employer] 07/25/2029 [id number] / / [id number] [employer] [id number] Attune Cruciate Retain Cementless Knee Right 4 Narrow Component - [id number] Implanted:Qty: 1 on 01/21/2022 by Song Harrison MD at [facility] Right: Knee [employer] 10/25/2030 [id number] / / [id number] [employer] Attune Fb Tib Base Sz 3 Por [id number] - [id number] Implanted:Qty: 1 on 07/28/2023 by Song aHrrison MD at [facility] Left: Knee [employer] [id number] 11/25/2032 [id number] / / [id number] [employer] Attune Cruciate Retain Cementless Knee Left 4 Narrow Component [id number] - [id number] Implanted:Qty: 1 on 07/28/2023 by Song Harrison MD at [facility] Left: Knee [employer] [id number] 01/24/2032 [id number] / / [id number] [employer] Insert Attune Left Medial Stabilized Size 4 6mm [id number] - [id number] Implanted:Qty: 1 on 07/28/2023 by Song Harrison MD at [facility] Left: Knee [employer] [id number] 03/25/2031 [id number] / / [id number] Procedures Procedure Name Priority Date/Time Associated Diagnosis Comments POCT GLUCOSE Routine 12/13/2024 2:25 PM AGRICULTURAL AGENT Type 2 diabetes mellitus with hyperglycemia, without long-term current use of insulin (HCC) POCT HEMOGLOBIN A1C Routine 06/08/2024 3 :57 PM CDT Type 2 diabetes mellitus with hyperglycemia, without long-term current use of insulin (HCC) EGFR Routine 03/15/2024 3:49 PM CDT from Last 3 Months or Most Recently Relevant to Health Maintenance Results * POCT glucose (12/13/2024 2:25 PM AGRICULTURAL AGENT) Glucose Blood, POC 132 mg/dL Comment:None Blood 12/13/2024 2:25 PM AGRICULTURAL AGENT us Felisha Erickson MD POINT OF CARE [...] LAB BLOOD ORDERABLES Final Resu lt JEFFY [address] [address]ñoz Department [place] [address] from Last 3 Months or Most Recently Relevant to Health Maintenance Insurance IDMN IDPA IDPA Care Teams Nuclear Process Engineer Relationship Specialty Start Date End Date Sandra Breen NP [address] [address] PCP - General Family Medicine 02/04/21 Noelle Gastelum MD [address] [place] [address] Pond Scaler Cardiology 10/04/21 Kaiser Sam NP [address] [place] [address] [place] [address] Nurse Practitioner Nurse Practitioner 01/21/22 Paola Kim, PT Physical Therapist Physical Therapy 02/13/22 Venus Jurado PA [address] [place] [address] [place] [address] Physician Lease Examiner Orthopedic Surgery 07/28/23
--- OUTSIDE RECORDS SUMMARY | 2025-02-17 14:59 | XMS_ITS | Clinical Summary ---
Author Organization [facility] Address [address] [place] [address] Phone Care Team Providers Care Social Services Aide Name Role Phone Sandra Breen APRN, ASHELY [...] Chewable Tablet 2 Active ergocalciferol (VITAMIN D) 77416 UNIT Capsule ergocalciferol (vitamin D2) 50,000 unit [...] this topic Insurance MEDICAID [place] Care Teams Social Services Aide Relationship Specialty Start Date End Date Sandra Breen, DESK MANAGER, TECHNICAL CUSTOMER SUPPORT SPECIALIST [address] [place] [address] PCP - General Advanced Practice Nurse 01/08/22 Zeus Moncada MD [address] [place] [id number] Consulting Physician Pulmonary Disease 08/04/22
--- OUTSIDE RECORDS SUMMARY | 2025-02-17 15:00 | XMS_ITS | Clinical Summary ---
Author Organization [facility] Address [facility] [place] [address] Care Team Providers Care Topology Teacher Name Role Phone Non-Staff, Provider Primary Care Provider Kristopher laboctavio Allergies Active Allergy Reactions Criticality Noted Date Comments Hydrocodone GI Upset 06/10/2023 Medications No known medications Encounters Date Type Department Care Team Description 02/08/2025 2:37 PM CDT - 02/08/2025 5:00 PM CDT Emergency [facility] [place] [address] Neha Sol PA Arm Pain Discharge Disposition: [...] - 99 MG/DL 02/08/2025 3:15 PM CDT [facility] BUN 12 7 - 18 MG/DL 02/08/2025 3:15 PM CDT [facility] CREATININE S/P/B 0.88 0.55 - 1.02 MG/DL 02/08/2025 3:15 PM CDT [facility] SODIUM S/P/B 137 136 - 145 MMOL/L 02/08/2025 3:15 PM CDT [facility] POTASSIUM S/P/B 3.4(L) 3.5 - 5.1 MMOL/L 02/08/2025 3:15 PM CDT [facility] CHLORIDE S/P/B 105 97 - 115 MMOL/L 02/08/2025 3:15 PM CDT [facility] CO2 26.9 21 - 32 MMOL/L 02/08/2025 3:15 PM CDT [facility] CALCIUM S/P/B 8.4(L) 8.5 - 10.1 MG/DL 02/08/2025 3:15 PM CDT [facility] BILIRUBIN TOTAL S/P/B 0.6 0.2 - 1.2 MG/DL 02/08/2025 3:15 PM CDT [facility] Comment: THIS ASSAY IS NOT RECOMMENDED FOR PATIENTS UNDERGOING TREATMENT WITH ELTROMBOPAG DUE TO THE POTENTIAL FOR FALSELY ELEVATED RESULTS. TOTAL PROTEIN S/P/B 7.6 6.4 - 8.2 G/DL 02/08/2025 3:15 PM CDT [facility] ALBUMIN S/P/B 3.8 3.4 - 5.0 G/DL 02/08/2025 3:15 PM CDT [facility] AST 15 15 - 37 U/L 02/08/2025 3:15 PM CDT [facility] ALT 19 14 - 55 U/L 02/08/2025 3:15 PM CDT [facility] ALKALINE PHOSPHATASE S/P/B 81 50 - 136 U/L 02/08/2025 3:15 PM CDT [facility] ANION GAP 5.1 2 - 10 MMOL/L 02/08/2025 3:15 PM CDT [facility] BUN CREATININE RATIO 13.7 6 - 26 02/08/2025 3:15 PM CDT [facility] A/G RATIO 1.0 1.0 - 2.0 RATIO 02/08/2025 3:15 PM CDT [facility] GFR ESTIMATE 80(L) >90 ML/MIN/1.7 3 M2 02/08/2025 3:15 PM CDT [facility] Comment: NOTE: eGFR is not calculated for patients <18 years of age or gender unknown. This is an estimated GFR calculation using the new CKD EPI creatinine equation without race and so does not require a correction factor for race. This estimated GFR should not be used for calculating drug doses. 02/08/2025 2:44 PM CDT [facility] Final Result [facility] [address] [place] [address], [place] [phone] * CBC W/DIFF AUTOMATED (02/08/2025 2:44 PM CDT) WBC 10.32 4.5 - 11.0 x10'3/uL 02/08/2025 3:18 PM CDT [facility] RBC 4.83 4.20 - 5.40 x10'6/uL 02/08/2025 3:18 PM CDT [facility] HGB 14.8 12.0 - 16.0 G/DL 02/08/2025 3:18 PM CDT [facility] HCT 44.8 38.0 - 48.0 % 02/08/2025 3:18 PM CDT [facility] MCV 92.8 81.0 - 99.0 FL 02/08/2025 3:18 PM CDT [facility] MCH 30.6 27.0 - 31.0 PG 02/08/2025 3:18 PM CDT [facility] MCHC 33.0 32.0 - 36.0 G/DL 02/08/2025 3:18 PM CDT [facility] RDW 13.3 11.5 - 14.5 % 02/08/2025 3:18 PM CDT [facility] PLT 215 130 - 400 x10'3/uL 02/08/2025 3:18 PM CDT [facility] MPV 11.3 9.3 - 12.2 FL 02/08/2025 3:18 PM CDT [facility] DIFFERENTIAL TYPE AUTOMATED DIFFERENTIAL 02/08/2025 3:18 PM CDT [facility] NEUTROPHILS % 67.7 % 02/08/2025 3:18 PM CDT [facility] LYMPHOCYTES % 22.7 % 02/08/2025 3:18 PM CDT [facility] MONOCYTES % 6.2 % 02/08/2025 3:18 PM CDT [facility] EOSINOPHILS 1.4 % 02/08/2025 3:18 PM CDT [facility] BASOPHILS 0.6 % 02/08/2025 3:18 PM CDT [facility] IMMATURE GRANS % 1.4 % 02/09/20 3:18 PM CDT [facility] ABS. NEUTROPHILS 7.00 1.80 - 7.70 x10'3/uL 02/08/2025 3:18 PM CDT [facility] ABS. LYMPHOCYTES 2.34 1.00 - 4.80 x10'3/uL 02/08/2025 3:18 PM CDT [facility] ABS. MONOCYTES 0.64 0.24 - 0.86 x10'3/uL 02/08/2025 3:18 PM CDT [facility] ABS. EOSINOPHILS 0.14 0.04 - 0.36 x10'3/uL 02/08/2025 3:18 PM CDT [facility] ABS. BASOPHILS 0.06 0.01 - 0.08 x10'3/uL 02/08/2025 3:18 PM CDT [facility] ABS. IMMATURE GRANULOCYTES 0.14 0.00 - 0.49 x10'3/uL 02/08/2025 3:18 PM CDT [facility] 02/08/2025 2:44 PM CDT [facility] Final Result Performing Organization Address [facility]/ZIP Co de Phone Number [facility] [address] [place] [address], [place] [phone] * TROPONIN, QUANT (02/08/2025 2:44 PM CDT) TROPONIN I HIGH SENSITIVITY 4 <54 ng/L 02/08/2025 3:15 PM CDT [facility] Comment: HIGH DOSES OF BIOTIN, TROPONIN-SPECIFIC AUTOANTIBODIES, AND ANTIBODY THERAPY CONTAINING HAMA MAY INTERFERE WITH THIS TEST RESULT. CORRELATION TO CLINICAL HISTORY AND PRESENTATION RECOMMENDED. 02/08/2025 2:44 PM CDT [facility] Final Result Performing Organization Address [facility]/ZIP Co de Phone Number [facility] [address] [place] [address], [place] [phone] * XR CHEST PORTABLE (02/08/2025 2:36 PM CDT) Anatomical Region Laterality Modality Chest Radiographic Alexandra ging 02/08/2025 2:46 PM CDT Impressions 02/08/2025 2:51 PM CDT Impression: No acute findings. Referred By: Interpreted By: Hira Cota MD, 02/08/2025 2:46 PM Narrative 02/08/2025 2:51 PM CDT [place] [address] Examination: Chest 1 view portable History: Right arm numbness DATE/TIME: 02/08/2025 2:26 PM Comparison: June 10, 2023 Technique: AP upright portable view of the chest was obtained. Findings: Heart size, mediastinal contours and pulmonary vasculature are within normal limits. No pulmonary consolidation, pleural effusion or pneumothorax. No acute osseous abnormality. Minimal lateral curvature of the spine. Procedure Note Hira Cota MD - 02/08/2025 [place] [address] Examination: Chest 1 view portable History: Right [...] Last 3 Months Insurance MEDICAID Care Teams Topology Teacher Relationship Specialty Start Date End Date Non-Staff, Provider PCP - General UNKNOWN PHYSICIAN SPECIALTY 02/08/25
--- OUTSIDE RECORDS SUMMARY | 2025-02-17 15:00 | XMS_ITS | Clinical Summary ---
Author Organization [facility] Address [address] [place] [address] Care Team Providers Care Radio Script Writer Name Role Phone Marisela Shepherd FINISHING MACHINE TENDER-WARRANT SERVER Primary Care Provider [phone] Source Comments [facility],non-owned Affiliates and Associated Physician Practices is amultiple site organization consisting of ambulatory clinics and hospital sitesin [place], [place], [place] and [place]. This disclosure is being madepursuant to the Care Everywhere program and may not contain all information available regarding this patient. Last updated 18.[facility] Allergies Active Allergy Reactions Criticality Noted Date Comments Hydrocodone-Acetaminophen Vomiting 02/19/2018 Medications * Be aware that medications may not be up to date on this document. Alwaysverify current medications with the patient. ibuprofen (MOTRIN) 800 MG tablet ibuprofen 800 mg tablet Active cyclobenzaprin e (FLEXERIL) 10 MG tablet cyclobenzaprine 10 mg tablet Active ergocalciferol (DRISDOL) 43055 units capsule ergocalciferol (vitamin D2) 50,000 unit [...] Sex Assigned at Female 09/03/2021 10:47 AM SUPERVISOR JOINERS Legal Sex Female 9:03 PM SUPERVISOR JOINERS Gender Identity Female 09/03/2021 10:47 AM SUPERVISOR JOINERS Sexual Orientation Straight 09/03/2021 10 :47 AM SUPERVISOR JOINERS Last Filed Vital Signs Vital Sign Reading Time Taken Comments Blood Pressure 132/94 10/10/2019 10:05 AM SUPERVISOR JOINERS Pulse 103 10/10/2019 10:05 AM SUPERVISOR JOINERS Temperature 36.5 C (97.7 F) 10/10/2019 10:05 AM SUPERVISOR JOINERS Respiratory Rate 16 04/18/2019 1:21 PM CDT Oxygen Saturation 100% 04/18/2019 1:21 PM CDT Inhaled Oxygen Concentration - - Weight 86.2 kg (190 lb) 11/08/2019 9:36 AM SUPERVISOR JOINERS Height 157.5 cm (5' 2 ) 11/08/2019 9:36 AM SUPERVISOR JOINERS Body Mass Index 34.75 11/08/2019 9:36 AM SUPERVISOR JOINERS Plan of Treatment Health Maintenance Due Date [...] patient's age to complete this topic Insurance [facility] Care Teams Radio Script Writer Relationship Specialty Start Date End Date Marisela Shepherd, FINISHING MACHINE TENDER-WARRANT SERVER [address] [place], [place] [id number] PCP - General 04/12/19
[2025-02-17 15:09] VITALS: BP 165/98; PULSE 89; RESP 18
--- NOTE | 2025-02-17 15:19 | ED.CHESTPAIN ---
HPI - Chest Pain General Chief Complaint: Chest Pain Stated Complaint: panic attack at work Time Seen by Provider: 02/17/25 14:49 History of Present Illness HPI narrative: 49-year-old female with a past medical history including anxiety and SVT that she takes metoprolol 4. She presents to the emergency department after having a potential panic attack. 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 Patient started feeling like she was having whole body spasms and chest pain. This was short-lived and resolved upon arrival to the emergency department. She states reporting anxiety in the past and feels more severe that was normally. Denies any present chest pain, shortness a breath, nausea vomiting, anxiety sensations. No back pain or fever. No trauma or injury. She was otherwise in her normal state of health. Took her morning metoprolol without issue. Related Data Home Medications ?Medication ?Instructions ?Recorded ?Confirmed ?Last Taken ?Type albuterol sulfate 90 mcg/actuation See Rx Instructions .Route 08/29/24 08/29/24 Unknown History aerosol inhaler .COMPLEX PRN sob atorvastatin 40 mg tablet 40 mg PO DAILY 08/29/24 08/29/24 Unknown History buspirone 10 mg tablet 20 mg PO BID 08/29/24 08/29/24 Unknown History citalopram 40 mg tablet 40 mg PO DAILY 08/29/24 08/29/24 Unknown History cyclobenzaprine 10 mg tablet See Rx Instructions .Route 08/29/24 08/29/24 Unknown History .COMPLEX PRN pain furosemide 40 mg tablet 40 mg PO DAILY 08/29/24 08/29/24 Unknown History ibuprofen 400 mg tablet See Rx Instructions .Route 08/29/24 08/29/24 Unknown History .COMPLEX PRN Pain lamotrigine 150 mg tablet 150 mg PO DAILY 08/29/24 08/29/24 Unknown History lisinopril 10 mg tablet 10 mg PO DAILY 08/29/24 08/29/24 Unknown History metformin 500 mg tablet 500 mg PO BID 08/29/24 08/29/24 Unknown History metoprolol succinate 50 mg 50 mg PO DAILY 08/29/24 08/29/24 Unknown History tablet,extended release 24 hr Allergies Allergy/AdvReac Type Severity Reaction Status Date / Time acetaminophen (From Vicodin) Allergy Nausea and Verified 02/17/25 13:43 Vomiting hydrocodone (From Vicodin) Allergy Nausea and Verified 02/17/25 13:43 Vomiting Beer Allergy Unknown HIVES, Uncoded 02/17/25 13:43 SWELLING Review of Systems Review of Systems: As reviewed above in [facility] Past Medical History Medical History History of depression History of hypertension Surgical History Surgical History History of section Exam Narrative: GENERAL: Well-appearing, not any distress. Bright Red hair, multiple tattoos. HEAD: [Normocephalic, atraumatic.] EYES: [PERRLA and EOMI.] ENT: Nares clear, no rhinorrhea or epistaxis. Mucous membranes moist. NECK: Supple. CHEST: [Clear to auscultation. No respiratory distress.] HEART: [Regular rate and rhythm]. No murmur heard. [Normal peripheral pulses.] ABDOMEN: [Soft, nondistended], [nontender], [No rigidity or guarding] EXTREMITIES: Normal range of motion. [No edema.] SKIN: Warm, dry, no rash. NEURO: [No focal deficits]. Alert and oriented [x3.] PSYCH: [Normal mood and affect.] Course Vital Signs Vital signs: Vital Signs Temperature 36.2 C L 02/17/25 13:37 Pulse Rate 94 02/17/25 13:37 Respiratory Rate 16 02/17/25 13:37 Blood Pressure 151/99 H 02/17/25 13:37 Pulse Oximetry 98 02/17/25 13:37 Oxygen Delivery Room Air 02/17/25 13:37 Temperature 36.6 C 02/17/25 14:28 Pulse Rate 89 02/17/25 15:09 Respiratory Rate 18 02/17/25 15:09 Blood Pressure 165/98 H 02/17/25 15:09 Pulse Oximetry 99 02/17/25 14:28 Oxygen Delivery Room Air 02/17/25 13:37 MDM - Chest Pain MDM Narrative Medical decision making narrative: 49-year-old female with history anxiety presents to the emergency room with chief complaint of potential anxiety verses chest pain. Patient was at work when strenuous situations were rising and she felt like her whole body was locking up and she started feeling chest discomfort. This was short-lived and now resolved. She denies any active chest pain, nausea, vomiting, back pain, fever, chills. She does not feel anxious at this time. She has a well well-appearing, has some stable hypertension but no other vital concerns. No signs of symptoms of DVT or CHF. She has clear breath sounds throughout, strong symmetric pulses with regular rate and rhythm. Cardiac workup was ordered given her age and risk factors especially with her history of SVT but suspicion presently is for panic attack versus musculoskeletal pain. Low suspicion cardiac event such as dysrhythmia or ACS. No suspicion presently for intrathoracic process such as pneumonia or pneumothorax. Cardiac workup including chest x-ray, EKGs, troponin, EKG obtained. Basic laboratory studies ordered. She was placed on hand edge bander and re-evaluated. Workup shows no leukocytosis or anemia. Normal platelet count. Normal coagulation panel. Electrolytes within normal limits. Normal renal and hepatic function panel. Negative troponin. Chest x-ray no acute cardiopulmonary disease. EKG shows sinus rhythm with no ST segment elevations or depressions. Patient is re-evaluated with no symptoms. She is safe for discharge home at this time. She will follow-up with regular doctor. Medical Records Data Attestation: I reviewed the patient's medical records. Lab Data Attestation: I reviewed the patient's lab results. 02/17/25 14:00 02/17/25 14:00 Labs: Lab Results 02/17/25 Range/Units 14:00 WBC 8.4 (4.5-10.0) K/mm3 RBC 4.88 (4.2-5.4) M/mm3 Hgb 14.7 (12.0-15.0) g/dL Hct 45.0 (37.0-47.0) % MCV 92.2 (80-100) fl MCH 30.1 (26-34) pg MCHC 32.7 (32-36) g/dl RDW 13.1 (11.5-14.5) % Plt Count 216 (150-375) k/mm3 MPV 11.6 H (7.4-10.4) fl Immature Gran % (Auto) 0.4 (0-0.5) % Neut % (Auto) 66.3 (45.5-73.1) % Lymph % (Auto) 24.9 (18.3-44.2) % Grundy % (Auto) 6.5 (2.6-8.5) % Eos % (Auto) 1.3 (0-4.4) % Baso % (Auto) 0.6 (0.2-1.2) % Lymph # (Auto) 2.10 (0.9-3.2) K/mm3 Grundy # (Auto) 0.6 (0.1-0.6) K/mm3 Eos # (Auto) 0.1 (0-0.3) K/mm3 Baso # (Auto) 0.1 (0.0-0.1) K/mm3 Abs Immat Gran (auto) 0.03 (0.00-0.031) K/mm3 Absolute Neuts (auto) 5.6 (1.3-6.7) K/mm3 Absolute Nucleated RBC 0.000 (0.0-0.012) K/mm3 Nucleated RBC % 0.0 (0.0-0.2) % PT 12.8 (11.1-14.7) Seconds INR 0.9 APTT 27.2 (22.3-36.8) Seconds Sodium 138 (137-145) mmol/L Potassium 3.5 (3.4-5.0) mmol/L Chloride 103 (98-107) mmol/L Carbon Dioxide 23 (22-30) mmol/L Anion Gap 12 (4-12) mmol/L BUN 12 (7-17) mg/dL Creatinine 0.70 (0.7-1.0) mg/dL Estim Creat Clear Calc 83 ml/min Estimated GFR > 60 (59 - ) Glucose 98 (65-110) mg/dL Calcium 9.3 (8.4-10.2) mg/dL Total Bilirubin 1.0 (0.2-1.3) mg/dL AST 23 (14-36) U/L ALT 21 (6-35) U/L Alkaline Phosphatase 100 (38-126) U/L Troponin I < 0.012 (0.000-0.034) ng/mL Total Protein 8.0 (6.3-8.2) g/dL Albumin 4.8 (3.5-5.1) g/dL Lipase 97 (23-300) U/L Imaging Data Attestation: I personally reviewed and interpreted this imaging study as follows: My impression: Impressions Chest X-Ray 02/17/25 14:25 IMPRESSION: 1: NO ACUTE CARDIOPULMONARY DISEASE. ECG Data EKG #1: Attestation: I personally reviewed and interpreted this ECG as follows: ECG completion date: 02/17/25 ECG completion time: 13:52 Prior ECG tracings: not available for review Interpretation: No ST segment elevation, depression or acute inversion. QTC 446, QRS interval 90, AL interval 116. Rate of 88 beats per minute. No previous EKG for comparison. Overall sinus rhythm, no signs of acute ischemic event. Discharge Plan Discharge Clinical Impression: Chest pain, Panic attack as reaction to stress Patient Disposition: Home Condition: Stable Instructions: Antibiotic Form, Chest Pain (ED) Additional Instructions: Your cardiac enzymes are undetectable, no signs of heart damage and your laboratory studies, EKG or chest x-ray. Follow-up with regular doctor. Return with any new or worsening concerns at any time. Patient Language: Spanish Prescriptions: No Action citalopram 40 mg tablet 40 mg PO DAILY atorvastatin 40 mg tablet 40 mg PO DAILY metoprolol succinate 50 mg tablet extended release 24 hr 50 mg PO DAILY albuterol sulfate 90 mcg/actuation HFA aerosol inhaler See Rx Instructions .ROUTE .COMPLEX PRN (Reason: sob) Rx Instructions: as prescribed lamotrigine 150 mg tablet 150 mg PO DAILY metformin 500 mg tablet 500 mg PO BID cyclobenzaprine 10 mg tablet See Rx Instructions .ROUTE .COMPLEX PRN (Reason: pain) Rx Instructions: as prescribed furosemide 40 mg tablet 40 mg PO DAILY lisinopril 10 mg tablet 10 mg PO DAILY ibuprofen 400 mg tablet See Rx Instructions .ROUTE .COMPLEX PRN (Reason: Pain) Rx Instructions: as prescribed buspirone 10 mg tablet 20 mg PO BID promethazine-DM 6.25-15 mg/5 mL syrup 5 ml PO Q4-6H PRN (Reason: cough) Qty: 120 0RF methylprednisolone [Medrol (Toney)] 4 mg tablets,dose pack See Rx Instructions .ROUTE .COMPLEX Qty: 21 0RF Rx Instructions: orally per package directions Follow-up/Referrals: Nuha,SEN Flores [Primary Care Provider] - Time of Disposition: 15:27 Quality HEART score for chest pain patients History: slightly suspicious ECG: normal Age: > 45 and < 65 years Risk factors: 1 or 2 risk factors Troponin: < or = to 1x normal limit Heart score: 2
[2025-02-17 15:26] VITALS: PULSE 89; O2SAT 95
--- NOTE | 2025-02-17 15:27 | PC.NURSE ---
Assumed care of patient.Resting on stretcher in NAD. Pt has no complaints at this time. Remains on full monitor, VS as charted. Pt updated in plan of care. Call light in reach with family at bedside.
== END 2025-02-17 15:36 | disposition home or self-care (01) ==
PROVIDERS: Emergency Medicine; Emergency Provider Student in an Organized Health Care Education/Training Program; PCP Nurse Practitioner Family
DX: R07.9 Chest pain, unspecified (principal); F43.0 Acute stress reaction; I10 Essential (primary) hypertension; F32.A Depression, unspecified
CPT/HCPCS: 36415; 71046; 80053; 83690; 84484; 85025; 85610; 85730; 93005; 99284